=== PATIENT | female | born 1955 | race Caucasian/White ===

== ENCOUNTER 2022-09-17 11:16 | Inpatient (IN) | payer BC, MEDICARE ==
[~2022-09-17] VITALS: Ht 162.6 cm; Wt 77.1 kg
[~2022-09-17 11:16] MED LIST: AMLODIPINE BESY10 MG PO; EFFEXOR XR 3737.5 MG PO; HYDROCHLOROTHIA25 MG; HYDROXYCHLOROQ200 MG PO; LEVEMIR100 UNIT/1 SQ; LOPRESSOR25 MG PO; LOSARTAN POTAS100 MG PO; NOVOLOG100 UNIT/1 SQ; TIZANIDINE HCL4 MG PO
[2022-09-17] MEDS ORDERED: SODIUM CHLORIDE 0.9% 1000ML 1,000 ML IV SCH (11:45)
[2022-09-17 12:12] LABS: BASOPHILS # (AUTO) 0.1 (0.0-0.1); BASOPHILS % 0.4 % (0.0-1.0); HEMATOCRIT 33.7 % (34.2-44.1); HEMOGLOBIN 10.6 g/dL (12.0-16.0); LYMPHOCYTES # (AUTO) 1.3 (1.0-3.2); LYMPHOCYTES % 5.9 % (18.0-39.1); MEAN CORPUSCULAR HEMOGLOBIN 25.6 pg (28-32); MEAN CORPUSCULAR HGB CONC 31.5 g/dL (31-35); MEAN CORPUSCULAR VOLUME 81.4 fL (81-99); MONOCYTES # (AUTO) 0.9 (0.2-0.8); MONOCYTES % 3.9 % (4.4-11.3); NEUTROPHILS # (AUTO) 20.2 (2.1-6.9); NEUTROPHILS % 89.2 % (38.7-80.0); PLATELET COUNT 336 x10e3/uL (140-360); RED BLOOD COUNT 4.14 x10e6/uL (3.6-5.1); RED CELL DISTRIBUTION WIDTH 14.1 % (11.7-14.4)
[2022-09-17 12:44] LABS: MAGNESIUM 1.9 MG/DL (1.3-2.1)
[2022-09-17 12:47] LABS: ALBUMIN 3.2 g/dL (3.5-5.0); ALBUMIN/GLOBULIN RATIO 0.7 (0.8-2.0); ANION GAP 15.7 mmol/L (8-16); CALCIUM 9.1 mg/dL (8.4-10.2); CREATININE, SERUM 2.31 mg/dL (0.57-1.11); POTASSIUM 3.7 mmol/L (3.5-5.1)
[2022-09-17 13:03] LABS: LYMPHOCYTES % (MANUAL) 9 % (19-48); MONOCYTES % (MANUAL) 2 % (3.4-9.0); NEUTROPHILS % (MANUAL) 89 % (40-74); PLATELET ESTIMATE ADEQUATE; PLATELET MORPHOLOGY COMMENT NORMAL; RBC MORPHOLOGY COMMENT NORMAL
[2022-09-17] MEDS: ONDANSETRON HCL INJ 2MG/ML 2ML 2 MG/ML VIAL IV PRN (14:57)
[2022-09-17 17:14] LABS: CLARITY,URINE CLOUDY (CLEAR); COLOR,URINE YELLOW (YELLOW); KETONES,URINE NEGATIVE (NEGATIVE); LEUKOCYTE ESTERASE ,URINE SMALL (NEGATIVE); NITRITE,URINE POSITIVE (NEGATIVE); PROTEIN,URINE DIPSTICK 2+ (NEGATIVE)
[2022-09-17 17:15] LABS: URINE UROBILINOGEN 0.2 mg/dL (0.2 - 1)
[2022-09-17 17:30] LABS: BACTERIA,URINE MANY /HPF
[2022-09-17 17:31] LABS: EPITHELIAL CELLS,URINE FEW /LPF
[2022-09-17 17:49] VITALS: BP 134/72; PULSE 75; RESP 18; TEMP 98.9; O2SAT 99
[2022-09-17 17:51] VITALS: BP 134/72; PULSE 75; RESP 18; TEMP 98.9; O2SAT 99
[2022-09-17 18:08] VITALS: BP 134/72; RESP 18; TEMP 98.9; O2SAT 99
[2022-09-17] MEDS ORDERED: METOPROLOL SUCC50 MG PO (18:21)
[2022-09-17] MEDS ORDERED: VENLAFAXINE HCL75 MG PO (18:21)
[2022-09-17] MEDS ORDERED: OLMSRTN-AMLDPN1 EAC4 PO (18:21)
[2022-09-17] MEDS ORDERED: ONDANSETRON HCL8 MG PO (18:21)
[2022-09-17] MEDS ORDERED: METFORMIN HCL500 MG PO (18:21)
[2022-09-17] MEDS ORDERED: ATORVASTATIN CA40 MG PO (18:21)
[2022-09-17] MEDS ORDERED: OMEPRAZOLE40 MG PO (18:21)
[2022-09-17] MEDS ORDERED: MYRBETRIQ25 MG PO (18:21)
[2022-09-17] MEDS: SODIUM CHLORIDE 0.9% 1000ML 1,000 ML IV SCH ×2 (18:48→22:59)
[2022-09-17 21:00] VITALS: BP 154/77; PULSE 85; RESP 18; TEMP 100; O2SAT 100
[2022-09-17 21:39] VITALS: BP 154/77; PULSE 85; RESP 18; TEMP 100; O2SAT 100
[2022-09-17] MEDS ORDERED: ONDANSETRON HCL 4 MG ORAL DISINTEGRATING TAB PO PRN (22:00)
[2022-09-17] MEDS: NON-FORMULARY MEDICATION (Mirabegron (Myrbetriq) 25 MG) PO SCH (22:00)
[2022-09-17] MEDS: ATORVASTATIN 40 MG TAB PO SCH (22:57)
[2022-09-17] MEDS: VENLAFAXINE HCL 75 MG TAB PO SCH (22:57)
[2022-09-17] MEDS: ACETAMINOPHEN 325 MG TAB PO PRN (22:58)
[2022-09-17] MEDS: METOPROLOL SUCCINATE 50 MG TAB XL PO SCH (22:58)
[2022-09-17] MEDS: TIZANIDINE HCL 4 MG TAB PO SCH (22:59)
[2022-09-18] VITALS (9 sets, daily range): BP systolic 113–165; BP diastolic 60–86; PULSE 70–99; RESP 16–20; TEMP 98.1–100; O2SAT 98–100
[2022-09-18 05:51] LABS: BASOPHILS # (AUTO) 0.1 (0.0-0.1); BASOPHILS % 0.4 % (0.0-1.0); EOSINOPHILS # (AUTO) 0.2 (0.0-0.4); EOSINOPHILS % 1.2 % (0.0-6.0); HEMATOCRIT 27.6 % (34.2-44.1); HEMOGLOBIN 8.4 g/dL (12.0-16.0); LYMPHOCYTES # (AUTO) 2.6 (1.0-3.2); LYMPHOCYTES % 21.4 % (18.0-39.1); MEAN CORPUSCULAR HEMOGLOBIN 25.5 pg (28-32); MEAN CORPUSCULAR HGB CONC 30.4 g/dL (31-35); MEAN CORPUSCULAR VOLUME 83.6 fL (81-99); MONOCYTES # (AUTO) 0.8 (0.2-0.8); MONOCYTES % 6.8 % (4.4-11.3); NEUTROPHILS # (AUTO) 8.6 (2.1-6.9); NEUTROPHILS % 69.7 % (38.7-80.0); PLATELET COUNT 245 x10e3/uL (140-360); RED CELL DISTRIBUTION WIDTH 14.3 % (11.7-14.4)
[2022-09-18 06:29] LABS: ANION GAP 10.2 mmol/L (8-16); CALCIUM 8.2 mg/dL (8.4-10.2); CREATININE, SERUM 1.52 mg/dL (0.57-1.11); POTASSIUM 3.2 mmol/L (3.5-5.1)
[2022-09-18] MEDS: SODIUM CHLORIDE 0.9% 1000ML 1,000 ML IV SCH ×2 (08:09→13:18)
[2022-09-18] MEDS ORDERED: HYDROCHLOROTHIAZIDE 25 MG TAB PO SCH (09:00)
[2022-09-18] MEDS: AMLODIPINE PO SCH (09:00)
[2022-09-18] MEDS: HYDROCHLOROTHIAZIDE PO SCH (09:00)
[2022-09-18] MEDS: OLMESARTAN PO SCH (09:00)
[2022-09-18] MEDS: METFORMIN HCL 500 MG TAB PO SCH (09:28)
[2022-09-18] MEDS: VENLAFAXINE HCL 75 MG TAB PO SCH ×2 (09:28→21:25)
[2022-09-18] MEDS: PANTOPRAZOLE SOD 40 MG TABEC PO SCH (09:28)
[2022-09-18] MEDS ORDERED: ACETAMINOPHEN 325 MG TAB PO PRN (17:00)
[2022-09-18] MEDS ORDERED: ONDANSETRON HCL INJ 2MG/ML 2ML 2 MG/ML VIAL IV PRN (17:00)
[2022-09-18] MEDS ORDERED: POTASSIUM CHLORIDE 20 MEQ TAB CR PO PRN (17:00)
[2022-09-18] MEDS: ONDANSETRON HCL INJ 2MG/ML 2ML 2 MG/ML VIAL IV PRN (17:13)
[2022-09-18] MEDS: NON-FORMULARY MEDICATION (Mirabegron (Myrbetriq) 25 MG) PO SCH (21:00)
[2022-09-18] MEDS: METOPROLOL SUCCINATE 50 MG TAB XL PO SCH (21:26)
[2022-09-18] MEDS: ATORVASTATIN 40 MG TAB PO SCH (21:27)
[2022-09-18] MEDS: ACETAMINOPHEN 325 MG TAB PO PRN (21:28)
[2022-09-18] MEDS: ZOLPIDEM TARTRATE 5 MG TAB PO PRN (21:29)
[2022-09-18] MEDS: TIZANIDINE HCL 4 MG TAB PO SCH (21:31)
[2022-09-19] VITALS (8 sets, daily range): BP systolic 94–178; BP diastolic 57–99; PULSE 57–90; RESP 19–20; TEMP 98–99.3; O2SAT 96–100
[2022-09-19] MEDS: SODIUM CHLORIDE 0.9% 1000ML 1,000 ML IV SCH ×3 (00:40→14:15)
[2022-09-19 06:07] LABS: BASOPHILS # (AUTO) 0.1 (0.0-0.1); BASOPHILS % 0.5 % (0.0-1.0); EOSINOPHILS # (AUTO) 0.2 (0.0-0.4); EOSINOPHILS % 2.2 % (0.0-6.0); HEMATOCRIT 25.2 % (34.2-44.1); HEMOGLOBIN 7.7 g/dL (12.0-16.0); LYMPHOCYTES # (AUTO) 2.4 (1.0-3.2); LYMPHOCYTES % 25.8 % (18.0-39.1); MEAN CORPUSCULAR HEMOGLOBIN 25.3 pg (28-32); MEAN CORPUSCULAR HGB CONC 30.6 g/dL (31-35); MEAN CORPUSCULAR VOLUME 82.9 fL (81-99); MONOCYTES # (AUTO) 0.8 (0.2-0.8); MONOCYTES % 8.6 % (4.4-11.3); NEUTROPHILS # (AUTO) 5.8 (2.1-6.9); NEUTROPHILS % 62.5 % (38.7-80.0); PLATELET COUNT 248 x10e3/uL (140-360); RED BLOOD COUNT 3.04 x10e6/uL (3.6-5.1); RED CELL DISTRIBUTION WIDTH 14.4 % (11.7-14.4)
[2022-09-19 06:36] LABS: ALBUMIN 2.3 g/dL (3.5-5.0); ALBUMIN/GLOBULIN RATIO 0.7 (0.8-2.0); ANION GAP 9.7 mmol/L (8-16); CREATININE, SERUM 1.34 mg/dL (0.57-1.11); POTASSIUM 3.7 mmol/L (3.5-5.1)
[2022-09-19] MEDS: OLMESARTAN PO SCH (09:00)
[2022-09-19] MEDS: AMLODIPINE PO SCH (09:00)
[2022-09-19] MEDS: HYDROCHLOROTHIAZIDE PO SCH (09:00)
[2022-09-19] MEDS: VENLAFAXINE HCL 75 MG TAB PO SCH ×2 (09:02→20:28)
[2022-09-19] MEDS: PANTOPRAZOLE SOD 40 MG TABEC PO SCH (09:03)
[2022-09-19] MEDS: METFORMIN HCL 500 MG TAB PO SCH (09:03)
[2022-09-19] MEDS ORDERED: NYSTATIN 15 GM POWDER UD BTL TOP PRN (13:30)
[2022-09-19 14:47] LABS: FERRITIN 22.2 ng/mL (4.63-204.00)
[2022-09-19] MEDS: TIZANIDINE HCL 4 MG TAB PO SCH (20:28)
[2022-09-19] MEDS: ZOLPIDEM TARTRATE 5 MG TAB PO PRN (20:28)
[2022-09-19] MEDS: ATORVASTATIN 40 MG TAB PO SCH (20:29)
[2022-09-19] MEDS: METOPROLOL SUCCINATE 50 MG TAB XL PO SCH (20:31)
[2022-09-19] MEDS: NON-FORMULARY MEDICATION (Mirabegron (Myrbetriq) 25 MG) PO SCH (21:00)
[2022-09-20] VITALS (7 sets, daily range): BP systolic 125–183; BP diastolic 73–98; PULSE 69–93; RESP 18–20; TEMP 97.8–99.4; O2SAT 98–100
[2022-09-20] MEDS: ONDANSETRON HCL INJ 2MG/ML 2ML 2 MG/ML VIAL IV PRN ×4 (00:10→21:18)
[2022-09-20 05:19] LABS: BASOPHILS # (AUTO) 0.1 (0.0-0.1); BASOPHILS % 0.7 % (0.0-1.0); EOSINOPHILS # (AUTO) 0.3 (0.0-0.4); EOSINOPHILS % 3.2 % (0.0-6.0); HEMATOCRIT 28.4 % (34.2-44.1); HEMOGLOBIN 8.7 g/dL (12.0-16.0); LYMPHOCYTES # (AUTO) 2.5 (1.0-3.2); LYMPHOCYTES % 23.8 % (18.0-39.1); MEAN CORPUSCULAR HEMOGLOBIN 25.4 pg (28-32); MEAN CORPUSCULAR HGB CONC 30.6 g/dL (31-35); MONOCYTES # (AUTO) 0.8 (0.2-0.8); MONOCYTES % 7.6 % (4.4-11.3); NEUTROPHILS # (AUTO) 6.9 (2.1-6.9); NEUTROPHILS % 64.3 % (38.7-80.0); PLATELET COUNT 262 x10e3/uL (140-360); RED BLOOD COUNT 3.42 x10e6/uL (3.6-5.1); RED CELL DISTRIBUTION WIDTH 14.4 % (11.7-14.4)
[2022-09-20 05:52] LABS: ALBUMIN 2.5 g/dL (3.5-5.0); ALBUMIN/GLOBULIN RATIO 0.7 (0.8-2.0); ANION GAP 11.6 mmol/L (8-16); CALCIUM 8.2 mg/dL (8.4-10.2); CREATININE, SERUM 1.33 mg/dL (0.57-1.11); POTASSIUM 3.6 mmol/L (3.5-5.1)
[2022-09-20] MEDS: METFORMIN HCL 500 MG TAB PO SCH (08:25)
[2022-09-20] MEDS: PANTOPRAZOLE SOD 40 MG TABEC PO SCH (08:25)
[2022-09-20] MEDS: VENLAFAXINE HCL 75 MG TAB PO SCH ×2 (08:25→21:26)
[2022-09-20] MEDS: SODIUM CHLORIDE 0.9% 1000ML 1,000 ML IV SCH (08:26)
[2022-09-20] MEDS: OLMESARTAN 20 MG TAB PO SCH (09:17)
[2022-09-20] MEDS: AMLODIPINE BESYLATE 10 MG TAB PO SCH (09:17)
[2022-09-20] MEDS: HYDROCHLOROTHIAZIDE 25 MG TAB PO SCH (09:17)
[2022-09-20] MEDS: IRON SUCROSE 100 MG in SODIUM CHLORIDE 0.9% 100 ML IV SCH (09:20)
[2022-09-20] MEDS ORDERED: IOPAMIDOL 370 MG/ML 100 ML INFUS..BTL INJ ONE (13:32)
[2022-09-20] MEDS ORDERED: ALBUTEROL/IPRATROPIUM 3 ML NEB NEB ONE (15:15)
[2022-09-20] MEDS ORDERED: ALBUTEROL/IPRATROPIUM 3 ML NEB NEB PRN (15:15)
[2022-09-20] MEDS: NON-FORMULARY MEDICATION (Mirabegron (Myrbetriq) 25 MG) PO SCH (21:00)
[2022-09-20] MEDS: ATORVASTATIN 40 MG TAB PO SCH (21:16)
[2022-09-20] MEDS: ZOLPIDEM TARTRATE 5 MG TAB PO PRN (21:17)
[2022-09-20] MEDS: METOPROLOL SUCCINATE 50 MG TAB XL PO SCH (21:17)
[2022-09-20] MEDS: ACETAMINOPHEN 325 MG TAB PO PRN (21:18)
[2022-09-20] MEDS: TIZANIDINE HCL 4 MG TAB PO SCH (21:27)
[2022-09-21] VITALS (7 sets, daily range): BP systolic 98–149; BP diastolic 65–96; PULSE 57–91; RESP 17–20; TEMP 97.3–98.9; O2SAT 96–100
[2022-09-21] MEDS: ONDANSETRON HCL INJ 2MG/ML 2ML 2 MG/ML VIAL IV PRN ×2 (05:35→19:42)
[2022-09-21 05:54] LABS: BASOPHILS # (AUTO) 0.1 (0.0-0.1); BASOPHILS % 0.7 % (0.0-1.0); EOSINOPHILS # (AUTO) 0.3 (0.0-0.4); EOSINOPHILS % 2.6 % (0.0-6.0); HEMATOCRIT 29.4 % (34.2-44.1); HEMOGLOBIN 9.2 g/dL (12.0-16.0); LYMPHOCYTES # (AUTO) 2.4 (1.0-3.2); LYMPHOCYTES % 24.7 % (18.0-39.1); MEAN CORPUSCULAR HEMOGLOBIN 25.3 pg (28-32); MEAN CORPUSCULAR HGB CONC 31.3 g/dL (31-35); MONOCYTES # (AUTO) 0.7 (0.2-0.8); MONOCYTES % 6.7 % (4.4-11.3); NEUTROPHILS # (AUTO) 6.4 (2.1-6.9); PLATELET COUNT 271 x10e3/uL (140-360); RED BLOOD COUNT 3.63 x10e6/uL (3.6-5.1); RED CELL DISTRIBUTION WIDTH 14.5 % (11.7-14.4)
[2022-09-21 06:19] LABS: ANION GAP 11.8 mmol/L (8-16); CALCIUM 8.3 mg/dL (8.4-10.2); CREATININE, SERUM 1.57 mg/dL (0.57-1.11); POTASSIUM 3.8 mmol/L (3.5-5.1)
[2022-09-21] MEDS ORDERED: FUROSEMIDE INJ 10 MG/ML 2 ML VIAL IV ONE (09:30)
[2022-09-21] MEDS: VENLAFAXINE HCL 75 MG TAB PO SCH ×2 (09:32→20:52)
[2022-09-21] MEDS: OLMESARTAN 20 MG TAB PO SCH (09:33)
[2022-09-21] MEDS: AMLODIPINE BESYLATE 10 MG TAB PO SCH (09:33)
[2022-09-21] MEDS: HYDROCHLOROTHIAZIDE 25 MG TAB PO SCH (09:34)
[2022-09-21] MEDS: METFORMIN HCL 500 MG TAB PO SCH (09:34)
[2022-09-21] MEDS: PANTOPRAZOLE SOD 40 MG TABEC PO SCH (09:34)
[2022-09-21] MEDS: IRON SUCROSE 100 MG in SODIUM CHLORIDE 0.9% 100 ML IV SCH (09:40)
[2022-09-21] MEDS ORDERED: MECLIZINE HCL 12.5 MG TAB PO ONE (11:15)
[2022-09-21] MEDS: NON-FORMULARY MEDICATION (Mirabegron (Myrbetriq) 25 MG) PO SCH (20:51)
[2022-09-21] MEDS: TIZANIDINE HCL 4 MG TAB PO SCH (20:52)
[2022-09-21] MEDS: ATORVASTATIN 40 MG TAB PO SCH (20:53)
[2022-09-21] MEDS: METOPROLOL SUCCINATE 50 MG TAB XL PO SCH (20:56)
[2022-09-21] MEDS: ZOLPIDEM TARTRATE 5 MG TAB PO PRN (21:50)
[2022-09-22] VITALS (8 sets, daily range): BP systolic 99–139; BP diastolic 52–98; PULSE 61–88; RESP 18–21; TEMP 97.3–98.5; O2SAT 94–100
[2022-09-22 05:57] LABS: BASOPHILS # (AUTO) 0.1 (0.0-0.1); BASOPHILS % 0.5 % (0.0-1.0); EOSINOPHILS # (AUTO) 0.3 (0.0-0.4); EOSINOPHILS % 2.8 % (0.0-6.0); HEMATOCRIT 26.4 % (34.2-44.1); HEMOGLOBIN 8.5 g/dL (12.0-16.0); LYMPHOCYTES # (AUTO) 2.4 (1.0-3.2); LYMPHOCYTES % 22.5 % (18.0-39.1); MEAN CORPUSCULAR HEMOGLOBIN 25.4 pg (28-32); MEAN CORPUSCULAR HGB CONC 32.2 g/dL (31-35); MONOCYTES # (AUTO) 0.7 (0.2-0.8); MONOCYTES % 6.3 % (4.4-11.3); NEUTROPHILS # (AUTO) 7.1 (2.1-6.9); NEUTROPHILS % 67.4 % (38.7-80.0); PLATELET COUNT 273 x10e3/uL (140-360); RED BLOOD COUNT 3.34 x10e6/uL (3.6-5.1); RED CELL DISTRIBUTION WIDTH 14.5 % (11.7-14.4)
[2022-09-22] MEDS: ONDANSETRON HCL INJ 2MG/ML 2ML 2 MG/ML VIAL IV PRN ×2 (06:05→18:37)
[2022-09-22 06:15] LABS: ANION GAP 14.5 mmol/L (8-16); CALCIUM 8.3 mg/dL (8.4-10.2); CREATININE, SERUM 2.05 mg/dL (0.57-1.11); POTASSIUM 3.5 mmol/L (3.5-5.1)
[2022-09-22] MEDS ORDERED: SODIUM CHLORIDE 0.9% 100 ML ONE (08:36)
[2022-09-22] MEDS: IRON SUCROSE 100 MG in SODIUM CHLORIDE 0.9% 100 ML IV SCH (09:10)
[2022-09-22] MEDS: VENLAFAXINE HCL 75 MG TAB PO SCH ×2 (09:11→20:06)
[2022-09-22] MEDS: OLMESARTAN 20 MG TAB PO SCH (09:11)
[2022-09-22] MEDS: MECLIZINE HCL 12.5 MG TAB PO SCH (09:11)
[2022-09-22] MEDS: AMLODIPINE BESYLATE 10 MG TAB PO SCH (09:12)
[2022-09-22] MEDS: METFORMIN HCL 500 MG TAB PO SCH (09:12)
[2022-09-22] MEDS: PANTOPRAZOLE SOD 40 MG TABEC PO SCH (09:12)
[2022-09-22] MEDS ORDERED: FUROSEMIDE INJ 10 MG/ML 2 ML VIAL IV ONE (10:30)
[2022-09-22] MEDS: ACETAMINOPHEN 325 MG TAB PO PRN (11:57)
[2022-09-22] MEDS ORDERED: DEXAMETHASONE SOD PHOS 10 MG/1 ML VIAL IV ONE (13:15)
[2022-09-22] MEDS ORDERED: DEXTROSE 50% SYRINGE 50 ML IV PRN (14:00)
[2022-09-22] MEDS: INSULIN LISPRO 100 UNIT/1 ML 3ML VIAL SQ SCH ×2 (16:30→21:06)
[2022-09-22] MEDS: METOPROLOL SUCCINATE 50 MG TAB XL PO SCH (20:07)
[2022-09-22] MEDS: TIZANIDINE HCL 4 MG TAB PO SCH (20:08)
[2022-09-22] MEDS: ATORVASTATIN 40 MG TAB PO SCH (20:09)
[2022-09-22] MEDS: Morphine 2mg Syringe 2 MG/ML SYR IV PRN (20:11)
[2022-09-22] MEDS ORDERED: CYANOCOBALAMIN INJ 1,000 MCG/ML VIAL IM ONE (20:15)
[2022-09-22] MEDS: NON-FORMULARY MEDICATION (Mirabegron (Myrbetriq) 25 MG) PO SCH (20:48)
[2022-09-23] VITALS (7 sets, daily range): BP systolic 110–143; BP diastolic 40–80; PULSE 66–95; RESP 16–21; TEMP 97.1–98.8; O2SAT 98–100
[2022-09-23] MEDS: ZOLPIDEM TARTRATE 5 MG TAB PO PRN ×2 (00:20→21:06)
[2022-09-23] MEDS: ACETAMINOPHEN 325 MG TAB PO PRN (00:29)
[2022-09-23] MEDS: ONDANSETRON HCL INJ 2MG/ML 2ML 2 MG/ML VIAL IV PRN ×2 (02:43→07:51)
[2022-09-23] MEDS: Morphine 2mg Syringe 2 MG/ML SYR IV PRN ×4 (03:15→23:00)
[2022-09-23 06:37] LABS: BASOPHILS % 0.2 % (0.0-1.0); HEMATOCRIT 25.2 % (34.2-44.1); LYMPHOCYTES # (AUTO) 1.3 (1.0-3.2); LYMPHOCYTES % 7.8 % (18.0-39.1); MEAN CORPUSCULAR HEMOGLOBIN 25.6 pg (28-32); MEAN CORPUSCULAR HGB CONC 31.7 g/dL (31-35); MEAN CORPUSCULAR VOLUME 80.5 fL (81-99); MONOCYTES # (AUTO) 0.3 (0.2-0.8); MONOCYTES % 1.6 % (4.4-11.3); NEUTROPHILS # (AUTO) 14.3 (2.1-6.9); NEUTROPHILS % 89.8 % (38.7-80.0); PLATELET COUNT 271 x10e3/uL (140-360); RED BLOOD COUNT 3.13 x10e6/uL (3.6-5.1); RED CELL DISTRIBUTION WIDTH 14.2 % (11.7-14.4)
[2022-09-23 07:00] LABS: ALBUMIN 2.8 g/dL (3.5-5.0); ALBUMIN/GLOBULIN RATIO 0.7 (0.8-2.0); ANION GAP 14.4 mmol/L (8-16); CALCIUM 8.3 mg/dL (8.4-10.2); CREATININE, SERUM 2.35 mg/dL (0.57-1.11); POTASSIUM 3.4 mmol/L (3.5-5.1)
[2022-09-23] MEDS: CYANOCOBALAMIN INJ 1,000 MCG/ML VIAL IM SCH (08:11)
[2022-09-23] MEDS: INSULIN LISPRO 100 UNIT/1 ML 3ML VIAL SQ SCH ×4 (08:12→21:11)
[2022-09-23] MEDS ORDERED: REGADENOSON 0.4 MG/5 ML SYR IV ONE (08:51)
[2022-09-23] MEDS: MECLIZINE HCL 12.5 MG TAB PO SCH (10:34)
[2022-09-23] MEDS: OLMESARTAN 20 MG TAB PO SCH (10:34)
[2022-09-23] MEDS: VENLAFAXINE HCL 75 MG TAB PO SCH ×2 (10:34→21:05)
[2022-09-23] MEDS: IRON-VITAMIN-MINERAL CAPSULE PO SCH ×2 (10:34→16:48)
[2022-09-23] MEDS: PANTOPRAZOLE SOD 40 MG TABEC PO SCH (10:34)
[2022-09-23] MEDS: AMLODIPINE BESYLATE 10 MG TAB PO SCH (10:35)
[2022-09-23] MEDS ORDERED: POTASSIUM CHLORIDE 20 MEQ TAB CR PO ONE (13:30)
[2022-09-23] MEDS: LACTATED RINGER'S 1,000 ML INJ SCH (19:16)
[2022-09-23] MEDS: NON-FORMULARY MEDICATION (Mirabegron (Myrbetriq) 25 MG) PO SCH (21:00)
[2022-09-23] MEDS: ATORVASTATIN 40 MG TAB PO SCH (21:05)
[2022-09-23] MEDS: TIZANIDINE HCL 4 MG TAB PO SCH (21:06)
[2022-09-23] MEDS: METOPROLOL SUCCINATE 50 MG TAB XL PO SCH (21:06)
[2022-09-24] VITALS (11 sets, daily range): BP systolic 107–137; BP diastolic 56–92; PULSE 71–98; RESP 17–22; TEMP 97.5–98.7; O2SAT 90–100
[2022-09-24] MEDS: ONDANSETRON HCL INJ 2MG/ML 2ML 2 MG/ML VIAL IV PRN ×3 (06:41→23:52)
[2022-09-24] MEDS: LACTATED RINGER'S 1,000 ML INJ SCH (06:41)
[2022-09-24 06:48] LABS: BASOPHILS # (AUTO) 0.1 (0.0-0.1); BASOPHILS % 0.4 % (0.0-1.0); EOSINOPHILS # (AUTO) 0.1 (0.0-0.4); HEMATOCRIT 22.9 % (34.2-44.1); LYMPHOCYTES # (AUTO) 3.1 (1.0-3.2); MEAN CORPUSCULAR HEMOGLOBIN 25.8 pg (28-32); MEAN CORPUSCULAR HGB CONC 31.4 g/dL (31-35); MEAN CORPUSCULAR VOLUME 82.1 fL (81-99); MONOCYTES # (AUTO) 0.8 (0.2-0.8); MONOCYTES % 5.4 % (4.4-11.3); NEUTROPHILS # (AUTO) 9.9 (2.1-6.9); NEUTROPHILS % 70.5 % (38.7-80.0); PLATELET COUNT 275 x10e3/uL (140-360); RED BLOOD COUNT 2.79 x10e6/uL (3.6-5.1); RED CELL DISTRIBUTION WIDTH 14.6 % (11.7-14.4)
[2022-09-24 06:55] LABS: HEMOGLOBIN 7.2 g/dL (12.0-16.0)
[2022-09-24] MEDS: INSULIN LISPRO 100 UNIT/1 ML 3ML VIAL SQ SCH ×4 (07:30→21:58)
[2022-09-24 07:40] LABS: ANION GAP 10.4 mmol/L (8-16); CREATININE, SERUM 2.08 mg/dL (0.57-1.11); POTASSIUM 3.4 mmol/L (3.5-5.1)
[2022-09-24] MEDS: CYANOCOBALAMIN INJ 1,000 MCG/ML VIAL IM SCH (08:58)
[2022-09-24] MEDS: Morphine 2mg Syringe 2 MG/ML SYR IV PRN ×3 (08:58→23:56)
[2022-09-24] MEDS: VENLAFAXINE HCL 75 MG TAB PO SCH ×2 (09:00→20:48)
[2022-09-24] MEDS: IRON-VITAMIN-MINERAL CAPSULE PO SCH ×2 (09:00→17:33)
[2022-09-24] MEDS: DIPHENHYDRAMINE HCL INJ 50 MG/ML VIAL IV PRN ×2 (10:15→20:49)
[2022-09-24] MEDS ORDERED: FENTANYL CITRATE/PF 100MCG/2 ML INJ ONE (11:53)
[2022-09-24] MEDS ORDERED: POTASSIUM CHLORIDE 20MEQ/100ML 100 ML IV ONE ×2 (12:15→17:00)
[2022-09-24] MEDS ORDERED: LIDOCAINE HCL 2% LOCAL INJ 5 ML SDV VIAL INJ ONE (13:48)
[2022-09-24] MEDS ORDERED: PROPOFOL IV EMULSION 10 MG/ML 20 ML VIAL ONE (13:48)
[2022-09-24] MEDS ORDERED: POVIDONE IODINE 0.05% 0.05 % ML PO ONE (13:48)
[2022-09-24] MEDS: MECLIZINE HCL 12.5 MG TAB PO SCH (17:33)
[2022-09-24] MEDS: PANTOPRAZOLE SOD 40 MG TABEC PO SCH (17:34)
[2022-09-24] MEDS: AMLODIPINE BESYLATE 10 MG TAB PO SCH (17:34)
[2022-09-24] MEDS: TIZANIDINE HCL 4 MG TAB PO SCH (20:48)
[2022-09-24] MEDS: ATORVASTATIN 40 MG TAB PO SCH (20:48)
[2022-09-24] MEDS: METOPROLOL SUCCINATE 50 MG TAB XL PO SCH (20:48)
[2022-09-24] MEDS: NON-FORMULARY MEDICATION (Mirabegron (Myrbetriq) 25 MG) PO SCH (21:00)
[2022-09-24] MEDS: ZOLPIDEM TARTRATE 5 MG TAB PO PRN (23:52)
[2022-09-25] VITALS (9 sets, daily range): BP systolic 103–135; BP diastolic 43–71; PULSE 62–87; RESP 18–22; TEMP 97.8–98.5; O2SAT 90–100
[2022-09-25] MEDS: ONDANSETRON HCL INJ 2MG/ML 2ML 2 MG/ML VIAL IV PRN ×2 (06:18→12:09)
[2022-09-25 07:22] LABS: BASOPHILS # (AUTO) 0.1 (0.0-0.1); BASOPHILS % 0.5 % (0.0-1.0); EOSINOPHILS # (AUTO) 0.4 (0.0-0.4); EOSINOPHILS % 2.7 % (0.0-6.0); HEMATOCRIT 25.8 % (34.2-44.1); LYMPHOCYTES # (AUTO) 3.3 (1.0-3.2); LYMPHOCYTES % 25.2 % (18.0-39.1); MEAN CORPUSCULAR HEMOGLOBIN 25.7 pg (28-32); MONOCYTES % 7.2 % (4.4-11.3); NEUTROPHILS # (AUTO) 8.4 (2.1-6.9); NEUTROPHILS % 63.6 % (38.7-80.0); PLATELET COUNT 317 x10e3/uL (140-360); RED BLOOD COUNT 3.11 x10e6/uL (3.6-5.1); RED CELL DISTRIBUTION WIDTH 15.8 % (11.7-14.4)
[2022-09-25] MEDS: INSULIN LISPRO 100 UNIT/1 ML 3ML VIAL SQ SCH ×4 (09:50→21:08)
[2022-09-25] MEDS: CYANOCOBALAMIN INJ 1,000 MCG/ML VIAL IM SCH (09:51)
[2022-09-25] MEDS: OLMESARTAN 20 MG TAB PO SCH (09:51)
[2022-09-25] MEDS: MECLIZINE HCL 12.5 MG TAB PO SCH (09:52)
[2022-09-25] MEDS: IRON-VITAMIN-MINERAL CAPSULE PO SCH ×2 (09:52→16:42)
[2022-09-25] MEDS: PANTOPRAZOLE SOD 40 MG TABEC PO SCH (09:52)
[2022-09-25] MEDS: AMLODIPINE BESYLATE 10 MG TAB PO SCH (09:52)
[2022-09-25] MEDS: VENLAFAXINE HCL 75 MG TAB PO SCH ×2 (09:52→20:48)
[2022-09-25] MEDS: DOCUSATE SODIUM 100 MG CAP PO PRN ×2 (09:54→17:16)
[2022-09-25 13:48] LABS: ANION GAP 12.8 mmol/L (8-16); CALCIUM 8.1 mg/dL (8.4-10.2); POTASSIUM 3.8 mmol/L (3.5-5.1)
[2022-09-25 15:21] LABS: CREATININE, SERUM 1.9 mg/dL (0.57-1.11)
[2022-09-25] MEDS ORDERED: LIDOCAINE 4% PATCH TP PRN (15:45)
[2022-09-25] MEDS: TIZANIDINE HCL 4 MG TAB PO SCH (20:49)
[2022-09-25] MEDS: ATORVASTATIN 40 MG TAB PO SCH (20:49)
[2022-09-25] MEDS: METOPROLOL SUCCINATE 50 MG TAB XL PO SCH (20:49)
[2022-09-25] MEDS: NON-FORMULARY MEDICATION (Mirabegron (Myrbetriq) 25 MG) PO SCH (21:00)
[2022-09-25] MEDS: ZOLPIDEM TARTRATE 5 MG TAB PO PRN (22:42)
[2022-09-26] VITALS (12 sets, daily range): BP systolic 98–141; BP diastolic 46–93; PULSE 61–120; RESP 17–22; TEMP 97.5–98.8; O2SAT 92–98
[2022-09-26 06:38] LABS: ANION GAP 11.8 mmol/L (8-16); CALCIUM 7.8 mg/dL (8.4-10.2); CREATININE, SERUM 1.84 mg/dL (0.57-1.11); POTASSIUM 3.8 mmol/L (3.5-5.1)
[2022-09-26] MEDS: INSULIN LISPRO 100 UNIT/1 ML 3ML VIAL SQ SCH ×4 (07:30→21:10)
[2022-09-26] MEDS: OLMESARTAN 20 MG TAB PO SCH (08:55)
[2022-09-26] MEDS: IRON-VITAMIN-MINERAL CAPSULE PO SCH ×2 (08:55→15:36)
[2022-09-26] MEDS: VENLAFAXINE HCL 75 MG TAB PO SCH ×2 (08:55→21:02)
[2022-09-26] MEDS: ONDANSETRON HCL INJ 2MG/ML 2ML 2 MG/ML VIAL IV PRN (08:55)
[2022-09-26] MEDS: AMLODIPINE BESYLATE 10 MG TAB PO SCH (08:56)
[2022-09-26] MEDS: CYANOCOBALAMIN INJ 1,000 MCG/ML VIAL IM SCH (08:56)
[2022-09-26] MEDS: PANTOPRAZOLE SOD 40 MG TABEC PO SCH (08:56)
[2022-09-26] MEDS: MECLIZINE HCL 12.5 MG TAB PO SCH (08:56)
[2022-09-26] MEDS ORDERED: Morphine 2mg Syringe 2 MG/ML SYR IV ONE (09:45)
[2022-09-26] MEDS ORDERED: ACETAMINOPHEN/CODEINE 300MG - 30MG TAB PO PRN (13:30)
[2022-09-26] MEDS: ACETAMINOPHEN 325 MG TAB PO PRN ×2 (15:36→21:04)
[2022-09-26] MEDS ORDERED: LACTULOSE SYRUP 20 GM/30 ML UDC PO PRN (17:30)
[2022-09-26] MEDS: NON-FORMULARY MEDICATION (Mirabegron (Myrbetriq) 25 MG) PO SCH (21:00)
[2022-09-26] MEDS: METOPROLOL SUCCINATE 50 MG TAB XL PO SCH (21:02)
[2022-09-26] MEDS: TIZANIDINE HCL 4 MG TAB PO SCH (21:03)
[2022-09-26] MEDS: ZOLPIDEM TARTRATE 5 MG TAB PO PRN (21:03)
[2022-09-26] MEDS: ATORVASTATIN 40 MG TAB PO SCH (21:03)
[2022-09-27] VITALS (10 sets, daily range): BP systolic 100–155; BP diastolic 50–92; PULSE 62–79; RESP 18–20; TEMP 97.7–98.7; O2SAT 93–100
[2022-09-27] MEDS: INSULIN LISPRO 100 UNIT/1 ML 3ML VIAL SQ SCH ×4 (07:30→21:24)
[2022-09-27] MEDS: MECLIZINE HCL 12.5 MG TAB PO SCH (09:22)
[2022-09-27] MEDS: VENLAFAXINE HCL 75 MG TAB PO SCH ×2 (09:22→21:21)
[2022-09-27] MEDS: OLMESARTAN 20 MG TAB PO SCH (09:22)
[2022-09-27] MEDS: IRON-VITAMIN-MINERAL CAPSULE PO SCH ×2 (09:22→17:15)
[2022-09-27] MEDS: PANTOPRAZOLE SOD 40 MG TABEC PO SCH (09:22)
[2022-09-27] MEDS: AMLODIPINE BESYLATE 10 MG TAB PO SCH (09:23)
[2022-09-27] MEDS: CYANOCOBALAMIN INJ 1,000 MCG/ML VIAL IM SCH (09:23)
[2022-09-27] MEDS: ACETAMINOPHEN 325 MG TAB PO PRN ×2 (09:57→17:52)
[2022-09-27 17:01] LABS: BASOPHILS # (AUTO) 0.1 (0.0-0.1); BASOPHILS % 0.3 % (0.0-1.0); EOSINOPHILS # (AUTO) 0.4 (0.0-0.4); EOSINOPHILS % 2.3 % (0.0-6.0); HEMATOCRIT 28.4 % (34.2-44.1); LYMPHOCYTES # (AUTO) 2.6 (1.0-3.2); LYMPHOCYTES % 16.6 % (18.0-39.1); MEAN CORPUSCULAR HGB CONC 31.7 g/dL (31-35); MEAN CORPUSCULAR VOLUME 82.1 fL (81-99); MONOCYTES # (AUTO) 0.8 (0.2-0.8); MONOCYTES % 5.3 % (4.4-11.3); NEUTROPHILS # (AUTO) 11.8 (2.1-6.9); NEUTROPHILS % 74.9 % (38.7-80.0); PLATELET COUNT 359 x10e3/uL (140-360); RED BLOOD COUNT 3.46 x10e6/uL (3.6-5.1); RED CELL DISTRIBUTION WIDTH 16.1 % (11.7-14.4)
[2022-09-27 17:18] LABS: ANION GAP 14.9 mmol/L (8-16); CALCIUM 8.9 mg/dL (8.4-10.2); CREATININE, SERUM 1.58 mg/dL (0.57-1.11); POTASSIUM 3.9 mmol/L (3.5-5.1)
[2022-09-27] MEDS: NON-FORMULARY MEDICATION (Mirabegron (Myrbetriq) 25 MG) PO SCH (21:00)
[2022-09-27] MEDS: METOPROLOL SUCCINATE 50 MG TAB XL PO SCH (21:21)
[2022-09-27] MEDS: ATORVASTATIN 40 MG TAB PO SCH (21:21)
[2022-09-27] MEDS: TIZANIDINE HCL 4 MG TAB PO SCH (21:21)
[2022-09-27] MEDS: ZOLPIDEM TARTRATE 5 MG TAB PO PRN (21:25)
[2022-09-28] VITALS: BP 91/79; PULSE 58; RESP 20; TEMP 97.3; O2SAT 98
[2022-09-28 05:49] LABS: BASOPHILS # (AUTO) 0.1 (0.0-0.1); BASOPHILS % 0.5 % (0.0-1.0); EOSINOPHILS # (AUTO) 0.3 (0.0-0.4); EOSINOPHILS % 2.3 % (0.0-6.0); HEMATOCRIT 25.6 % (34.2-44.1); HEMOGLOBIN 7.8 g/dL (12.0-16.0); LYMPHOCYTES # (AUTO) 2.5 (1.0-3.2); MEAN CORPUSCULAR HGB CONC 30.5 g/dL (31-35); MEAN CORPUSCULAR VOLUME 85.3 fL (81-99); MONOCYTES # (AUTO) 0.7 (0.2-0.8); MONOCYTES % 5.6 % (4.4-11.3); NEUTROPHILS # (AUTO) 9.5 (2.1-6.9); NEUTROPHILS % 71.9 % (38.7-80.0); PLATELET COUNT 294 x10e3/uL (140-360); RED CELL DISTRIBUTION WIDTH 16.3 % (11.7-14.4)
[2022-09-28] MEDS: INSULIN LISPRO 100 UNIT/1 ML 3ML VIAL SQ SCH ×2 (07:30→12:26)
[2022-09-28 08:34] VITALS: BP 138/64; PULSE 77; RESP 20; TEMP 98.6; O2SAT 99
[2022-09-28] MEDS: MECLIZINE HCL 12.5 MG TAB PO SCH (08:57)
[2022-09-28] MEDS: OLMESARTAN 20 MG TAB PO SCH (08:57)
[2022-09-28] MEDS: IRON-VITAMIN-MINERAL CAPSULE PO SCH (08:57)
[2022-09-28] MEDS: VENLAFAXINE HCL 75 MG TAB PO SCH (08:57)
[2022-09-28] MEDS: PANTOPRAZOLE SOD 40 MG TABEC PO SCH (08:58)
[2022-09-28] MEDS: CYANOCOBALAMIN INJ 1,000 MCG/ML VIAL IM SCH (08:58)
[2022-09-28] MEDS: AMLODIPINE BESYLATE 10 MG TAB PO SCH (08:58)
[2022-09-28 09:10] VITALS: BP 138/64; PULSE 77; RESP 20; TEMP 98.6; O2SAT 99
[2022-09-28 12:17] VITALS: BP 143/83; PULSE 80; RESP 20; TEMP 99.1; O2SAT 98
== END 2022-09-28 13:37 | disposition home health service (06) | DRG 683 ==
LOC: ER 11:22 → ERHOLD 14:06 → MED/SURG2 17:28
PROVIDERS: ADMIT Internal Medicine; ATTEND Internal Medicine
PROC: 02HV33Z Insertion of Infusion Device into Superior Vena Cava, Percutaneous Approach (ICD-10-PCS; 2022-09-21)
PROC: 0DB68ZX Excision of Stomach, Via Natural or Artificial Opening Endoscopic, Diagnostic (ICD-10-PCS; principal; 2022-09-24 15:07)
DX: N17.9 Acute kidney failure, unspecified (principal); A09 Infectious gastroenteritis and colitis, unspecified; K20.90 Esophagitis, unspecified without bleeding; K44.9 Diaphragmatic hernia without obstruction or gangrene; R55 Syncope and collapse; E86.0 Dehydration; E11.22 Type 2 diabetes mellitus with diabetic chronic kidney disease; I25.10 Atherosclerotic heart disease of native coronary artery without angina pectoris; K59.00 Constipation, unspecified; E86.1 Hypovolemia; D63.1 Anemia in chronic kidney disease; D50.9 Iron deficiency anemia, unspecified; I13.10 Hypertensive heart and chronic kidney disease without heart failure, with stage 1 through stage 4 chronic kidney disease, or unspecified chronic kidney disease; N18.30 Chronic kidney disease, stage 3 unspecified; J45.909 Unspecified asthma, uncomplicated; E87.6 Hypokalemia; Z20.822 Contact with and (suspected) exposure to COVID-19; Z98.84 Bariatric surgery status; Z85.3 Personal history of malignant neoplasm of breast; Z88.2 Allergy status to sulfonamides; Z79.4 Long term (current) use of insulin; Z95.1 Presence of aortocoronary bypass graft; Z90.49 Acquired absence of other specified parts of digestive tract; Z98.1 Arthrodesis status; Z79.84 Long term (current) use of oral hypoglycemic drugs; Z92.21 Personal history of antineoplastic chemotherapy; Z92.3 Personal history of irradiation
CPT/HCPCS: 0223U; 36415; 36569; 43239; 43450; 70450; 71045; 71250; 71260; 72125; 74176; 78452; 80048; 80053; 81001; 82550; 82607; 82728; 82746; 82948; 83036; 83540; 83690; 83735; 84466; 84484; 85025; 85379; 87040; 88305; 88342; 93005; 93017; 93306; 93880; 94799; 96361; 99285; A9502; J1100; J1200; J1756; J1940; J2001; J2270; J2405; J2543; J3420; J3480; J7030; J7050; Q0162; Q9967

== ENCOUNTER 2023-11-16 16:31 | Inpatient (IN) | payer BC, MEDICARE ==
[2023-11-15 23:30] VITALS: BP 152/90; PULSE 96; RESP 20; TEMP 98.3; O2SAT 100
[~2023-11-16] VITALS: Ht 162.6 cm; Wt 77.1 kg
[~2023-11-16 16:31] MED LIST changes: +ATORVASTATIN CA40 MG PO; +METFORMIN HCL500 MG PO; +METOPROLOL SUCC50 MG PO; +MYRBETRIQ25 MG PO; +OLMSRTN-AMLDPN1 EAC4 PO; +OMEPRAZOLE40 MG PO; +ONDANSETRON HCL8 MG PO; +VENLAFAXINE HCL75 MG PO
[2023-11-16 16:56] VITALS: TEMP 98.7
[2023-11-16 17:41] LABS: BASOPHILS # (AUTO) 0.1 (0.0-0.1); BASOPHILS % 0.4 % (0.0-1.0); EOSINOPHILS % 0.1 % (0.0-6.0); HEMATOCRIT 36.7 % (34.2-44.1); HEMOGLOBIN 12.1 g/dL (12.0-16.0); LYMPHOCYTES # (AUTO) 2.6 (1.0-3.2); MEAN CORPUSCULAR HEMOGLOBIN 26.9 pg (28-32); MEAN CORPUSCULAR VOLUME 81.6 fL (81-99); MONOCYTES # (AUTO) 0.6 (0.2-0.8); MONOCYTES % 4.4 % (4.4-11.3); NEUTROPHILS # (AUTO) 10.2 (2.1-6.9); NEUTROPHILS % 75.7 % (38.7-80.0); PLATELET COUNT 323 x10e3/uL (140-360); RED CELL DISTRIBUTION WIDTH 14.7 % (11.7-14.4); WHITE BLOOD COUNT 13.44 x10e3/uL (4.8-10.8)
[2023-11-16 17:53] LABS: ALBUMIN 3.5 g/dL (3.5-5.0); ALBUMIN/GLOBULIN RATIO 0.9 (0.8-2.0); BILIRUBIN,TOTAL 0.3 mg/dL (0.2-1.2); CALCIUM 9.1 mg/dL (8.4-10.2); CREATININE, SERUM 1.87 mg/dL (0.57-1.11); TOTAL PROTEIN 7.3 g/dL (6.5-8.1)
[2023-11-16] MEDS: SODIUM CHLORIDE 0.9% 1000ML 1,000 ML IV STA (17:56)
[2023-11-16] MEDS: ACETAMINOPHEN 325 MG TAB PO STA (17:56)
[2023-11-16] MEDS: METOCLOPRAMIDE HCL 10 MG/2ML VIAL IV STA (17:56)
[2023-11-16] MEDS: DIGOXIN INJ 0.25 MG/ML 2 ML AMP IV STA (17:57)
[2023-11-16] MEDS: DILTIAZEM HCL 5 MG/ML 5 ML VIAL IV STA (17:57)
[2023-11-16 18:00] LABS: TROPONIN I 0.078 ng/mL (0-0.300)
[2023-11-16] MEDS: METOPROLOL TARTRATE INJ 1 MG/ML VIAL IV STA (18:31)
[2023-11-16] MEDS: ONDANSETRON HCL INJ 2MG/ML 2ML 2 MG/ML VIAL IV STA (18:31)
[2023-11-16 22:42] VITALS: PULSE 96; RESP 17
[2023-11-16] MEDS: SODIUM CHLORIDE 0.9% 1000ML 1,000 ML IV SCH (22:52)
[2023-11-16] MEDS ORDERED: SERTRALINE HCL50 MG PO (23:45)
[2023-11-17] VITALS (11 sets, daily range): BP systolic 98–194; BP diastolic 81–116; PULSE 71–102; RESP 16–20; TEMP 97.9–98.4; O2SAT 96–100
[2023-11-17 00:25] LABS: CLARITY,URINE HAZY (CLEAR); COLOR,URINE YELLOW (YELLOW); PH,URINE 5.5 (5 - 7)
[2023-11-17 00:26] LABS: BILIRUBIN,URINE SMALL (NEGATIVE); GLUCOSE, URINE NEGATIVE (NEGATIVE); KETONES,URINE NEGATIVE (NEGATIVE); LEUKOCYTE ESTERASE ,URINE NEGATIVE (NEGATIVE); NITRITE,URINE NEGATIVE (NEGATIVE); PROTEIN,URINE DIPSTICK >=300 (NEGATIVE); URINE UROBILINOGEN 0.2 mg/dL (0.2 - 1)
[2023-11-17 00:28] LABS: BACTERIA,URINE MANY /HPF; EPITHELIAL CELLS,URINE MANY /LPF
[2023-11-17] MEDS: Morphine 4mg INJECTION 4 MG/ML INJ IV PRN (00:37)
[2023-11-17] MEDS: ONDANSETRON HCL INJ 2MG/ML 2ML 2 MG/ML VIAL IV PRN (01:39)
[2023-11-17] MEDS: ACETAMINOPHEN 325 MG TAB PO ONE (03:09)
[2023-11-17 05:45] LABS: BASOPHILS # (AUTO) 0.1 (0.0-0.1); BASOPHILS % 0.8 % (0.0-1.0); EOSINOPHILS # (AUTO) 0.2 (0.0-0.4); EOSINOPHILS % 1.3 % (0.0-6.0); HEMATOCRIT 35.2 % (34.2-44.1); LYMPHOCYTES # (AUTO) 3.2 (1.0-3.2); MEAN CORPUSCULAR HEMOGLOBIN 26.5 pg (28-32); MEAN CORPUSCULAR HGB CONC 31.3 g/dL (31-35); MEAN CORPUSCULAR VOLUME 84.8 fL (81-99); MONOCYTES # (AUTO) 0.7 (0.2-0.8); MONOCYTES % 5.5 % (4.4-11.3); NEUTROPHILS # (AUTO) 8.1 (2.1-6.9); NEUTROPHILS % 65.9 % (38.7-80.0); PLATELET COUNT 274 x10e3/uL (140-360); RED BLOOD COUNT 4.15 x10e6/uL (3.6-5.1); RED CELL DISTRIBUTION WIDTH 14.7 % (11.7-14.4); WHITE BLOOD COUNT 12.26 x10e3/uL (4.8-10.8)
[2023-11-17 06:09] LABS: ALBUMIN 3.2 g/dL (3.5-5.0); ALBUMIN/GLOBULIN RATIO 0.9 (0.8-2.0); ANION GAP 16.7 mmol/L (8-16); BILIRUBIN,TOTAL 0.4 mg/dL (0.2-1.2); CALCIUM 8.3 mg/dL (8.4-10.2); CREATININE, SERUM 1.71 mg/dL (0.57-1.11); TOTAL PROTEIN 6.8 g/dL (6.5-8.1)
[2023-11-17 06:15] LABS: POTASSIUM 2.7 mmol/L (3.5-5.1)
[2023-11-17 06:37] LABS: TROPONIN I 0.075 ng/mL (0-0.300)
[2023-11-17] MEDS: POTASSIUM CHLORIDE 20 MEQ TAB CR PO ONE ×2 (09:13→19:02)
[2023-11-17] MEDS: METOPROLOL TARTRATE INJ 1 MG/ML VIAL IV PRN (12:12)
[2023-11-17] MEDS: AMLODIPINE BESYLATE 10 MG TAB PO SCH (12:12)
[2023-11-17 15:00] LABS: TROPONIN I 0.078 ng/mL (0-0.300)
[2023-11-17] MEDS: ATORVASTATIN 40 MG TAB PO SCH (20:31)
[2023-11-17] MEDS: METOPROLOL SUCCINATE 50 MG TAB XL PO SCH (20:31)
[2023-11-18] VITALS: BP 145/99; PULSE 81; RESP 20; TEMP 98.7; O2SAT 100
[2023-11-18 06:15] LABS: BASOPHILS # (AUTO) 0.1 (0.0-0.1); EOSINOPHILS # (AUTO) 0.2 (0.0-0.4); EOSINOPHILS % 2.2 % (0.0-6.0); HEMATOCRIT 32.4 % (34.2-44.1); HEMOGLOBIN 10.5 g/dL (12.0-16.0); LYMPHOCYTES # (AUTO) 1.6 (1.0-3.2); LYMPHOCYTES % 17.4 % (18.0-39.1); MEAN CORPUSCULAR HEMOGLOBIN 27.1 pg (28-32); MEAN CORPUSCULAR HGB CONC 32.4 g/dL (31-35); MEAN CORPUSCULAR VOLUME 83.7 fL (81-99); MONOCYTES # (AUTO) 0.6 (0.2-0.8); MONOCYTES % 6.5 % (4.4-11.3); NEUTROPHILS # (AUTO) 6.6 (2.1-6.9); NEUTROPHILS % 72.6 % (38.7-80.0); PLATELET COUNT 241 x10e3/uL (140-360); RED BLOOD COUNT 3.87 x10e6/uL (3.6-5.1); RED CELL DISTRIBUTION WIDTH 14.8 % (11.7-14.4); WHITE BLOOD COUNT 9.14 x10e3/uL (4.8-10.8)
[2023-11-18 06:28] LABS: CALCIUM 7.9 mg/dL (8.4-10.2); CREATININE, SERUM 1.15 mg/dL (0.57-1.11)
[2023-11-18 08:00] VITALS: BP_SYST 164; BP_SYST 174; BP_DIAS 86; BP_DIAS 90; PULSE 82; RESP 17; TEMP 97.7; O2SAT 100
[2023-11-18] MEDS: PANTOPRAZOLE SOD 40 MG TABEC PO SCH (08:39)
[2023-11-18 08:45] VITALS: BP 174/90; PULSE 82; RESP 17; TEMP 97.7; O2SAT 100
[2023-11-18] MEDS ORDERED: METFORMIN HCL 500 MG TAB PO SCH (09:00)
[2023-11-18] MEDS ORDERED: SERTRALINE HCL 50 MG TAB PO SCH (09:00)
[2023-11-18 12:00] VITALS: BP 168/87; PULSE 77; RESP 19; TEMP 98.3; O2SAT 98
[2023-11-18] MEDS ORDERED: VENLAFAXINE HCL 75 MG TAB PO SCH (12:15)
[2023-11-18] MEDS: POTASSIUM CHLORIDE 20MEQ/100ML 100 ML IV ONE (12:18)
[2023-11-18] MEDS: DEXTROSE 5%/0.45% SOD CHL 1,000 ML IV ONE (12:18)
[2023-11-18] MEDS ORDERED: HYDRALAZINE HCL 20 MG/ML VIAL IV PRN (12:30)
[2023-11-18] MEDS: OLMESARTAN 20 MG TAB PO SCH (15:26)
[2023-11-18] MEDS: VENLAFAXINE HCL 75 MG TAB PO SCH (15:26)
[2023-11-18] MEDS: DEXTROSE 5%/0.9% SOD CHL 1,000 ML IV SCH (16:59)
[2023-11-18] MEDS: ACETAMINOPHEN 325 MG TAB PO PRN (17:00)
[2023-11-18] MEDS: POTASSIUM CHLORIDE 20 MEQ TAB CR PO ONE (17:00)
[2023-11-18 20:00] VITALS: BP 138/70; PULSE 72; RESP 18; TEMP 97.8; O2SAT 99
[2023-11-19] VITALS (8 sets, daily range): BP systolic 123–168; BP diastolic 70–101; PULSE 68–79; RESP 18–19; TEMP 97.5–98.4; O2SAT 98–100
[2023-11-19 06:37] LABS: ANION GAP 12.6 mmol/L (8-16); CALCIUM 8.3 mg/dL (8.4-10.2); CREATININE, SERUM 1.09 mg/dL (0.57-1.11); POTASSIUM 3.6 mmol/L (3.5-5.1)
[2023-11-20] VITALS (7 sets, daily range): BP systolic 113–168; BP diastolic 62–99; PULSE 68–82; RESP 16–18; TEMP 97.3–98.6; O2SAT 97–100
[2023-11-20] MEDS: PROMETHAZINE 12.5MG/ NACL 0.9% 12.5 MG/50 ML BAG IV PRN (12:34)
[2023-11-21] VITALS (8 sets, daily range): BP systolic 128–150; BP diastolic 74–85; PULSE 64–80; RESP 18–21; TEMP 98.2–99; O2SAT 96–100
[2023-11-21 06:23] LABS: BASOPHILS # (AUTO) 0.1 (0.0-0.1); BASOPHILS % 0.6 % (0.0-1.0); EOSINOPHILS # (AUTO) 0.3 (0.0-0.4); EOSINOPHILS % 2.7 % (0.0-6.0); HEMATOCRIT 30.8 % (34.2-44.1); HEMOGLOBIN 9.9 g/dL (12.0-16.0); LYMPHOCYTES # (AUTO) 1.7 (1.0-3.2); LYMPHOCYTES % 16.3 % (18.0-39.1); MEAN CORPUSCULAR HEMOGLOBIN 27.3 pg (28-32); MEAN CORPUSCULAR HGB CONC 32.1 g/dL (31-35); MEAN CORPUSCULAR VOLUME 85.1 fL (81-99); MONOCYTES # (AUTO) 0.7 (0.2-0.8); MONOCYTES % 6.8 % (4.4-11.3); NEUTROPHILS # (AUTO) 7.7 (2.1-6.9); NEUTROPHILS % 73.3 % (38.7-80.0); PLATELET COUNT 264 x10e3/uL (140-360); RED BLOOD COUNT 3.62 x10e6/uL (3.6-5.1); RED CELL DISTRIBUTION WIDTH 15.4 % (11.7-14.4); WHITE BLOOD COUNT 10.49 x10e3/uL (4.8-10.8)
[2023-11-21 06:42] LABS: ANION GAP 11.2 mmol/L (8-16); CALCIUM 8.1 mg/dL (8.4-10.2); CREATININE, SERUM 0.92 mg/dL (0.57-1.11); MAGNESIUM 1.8 MG/DL (1.3-2.1); PHOSPHORUS 1.9 MG/DL (2.3-4.7); POTASSIUM 3.2 mmol/L (3.5-5.1)
[2023-11-21] MEDS: LORAZEPAM INJ 2 MG/ML VIAL IV ONE (07:50)
[2023-11-21] MEDS ORDERED: POTASSIUM PHOSPHATE 15 MM in SODIUM CHLORIDE 0.9% 250ML 250 ML IV SCH (11:15)
[2023-11-21] MEDS ORDERED: SODIUM CHLORIDE 0.9% 250ML 250 ML ONE (12:29)
[2023-11-21] MEDS: POTASSIUM CHLORIDE 20 MEQ TAB CR PO ONE (12:30)
[2023-11-21] MEDS: ACETAMIN/BUTALBITAL/CAFFEINE TAB PO PRN ×2 (12:32→18:50)
[2023-11-22 00:45] VITALS: BP 148/81; PULSE 67; RESP 19; TEMP 98.3; O2SAT 100
[2023-11-22 05:11] VITALS: BP 138/84; PULSE 75; RESP 19; TEMP 98.7; O2SAT 100
[2023-11-22 06:07] LABS: BASOPHILS # (AUTO) 0.1 (0.0-0.1); BASOPHILS % 0.6 % (0.0-1.0); EOSINOPHILS # (AUTO) 0.3 (0.0-0.4); EOSINOPHILS % 2.2 % (0.0-6.0); HEMATOCRIT 33.5 % (34.2-44.1); HEMOGLOBIN 9.9 g/dL (12.0-16.0); LYMPHOCYTES # (AUTO) 1.8 (1.0-3.2); LYMPHOCYTES % 15.4 % (18.0-39.1); MEAN CORPUSCULAR HEMOGLOBIN 27.3 pg (28-32); MEAN CORPUSCULAR HGB CONC 29.6 g/dL (31-35); MEAN CORPUSCULAR VOLUME 92.3 fL (81-99); MONOCYTES # (AUTO) 0.7 (0.2-0.8); MONOCYTES % 5.9 % (4.4-11.3); NEUTROPHILS # (AUTO) 8.6 (2.1-6.9); NEUTROPHILS % 75.5 % (38.7-80.0); PLATELET COUNT 200 x10e3/uL (140-360); RED BLOOD COUNT 3.63 x10e6/uL (3.6-5.1); RED CELL DISTRIBUTION WIDTH 15.9 % (11.7-14.4); RETICULOCYTE % 2.3 % (0.8-2.2); WHITE BLOOD COUNT 11.42 x10e3/uL (4.8-10.8)
[2023-11-22 06:37] LABS: ANION GAP 15.5 mmol/L (8-16); CALCIUM 7.9 mg/dL (8.4-10.2); PHOSPHORUS 1.8 MG/DL (2.3-4.7); POTASSIUM 3.5 mmol/L (3.5-5.1)
[2023-11-22 06:49] LABS: FERRITIN 65.31 ng/mL (4.63-204.00)
[2023-11-22 06:55] LABS: FOLATE 8.2 ng/mL (7.0-15.4)
[2023-11-22 08:00] VITALS: BP 142/86; PULSE 74; RESP 19; TEMP 98.3; O2SAT 98
[2023-11-22] MEDS: POTASSIUM CHLORIDE 10MEQ EA PO ONE (08:12)
[2023-11-22] MEDS: POTASSIUM PHOSPHATE 15 MM in SODIUM CHLORIDE 0.9% 250ML 250 ML IV SCH (09:22)
[2023-11-22] MEDS ORDERED: VITAMIN C 500500 MG PO (10:49)
[2023-11-22] MEDS ORDERED: K-PHOS NEUTRAL250 MG PO (10:49)
[2023-11-22] MEDS ORDERED: NORVASC10 MG PO (10:49)
[2023-11-22] MEDS ORDERED: FIORICET 50-301 EACH PO (10:49)
[2023-11-22] MEDS ORDERED: ONDANSETRON ODT4 MG PO (10:49)
[2023-11-22 12:00] VITALS: BP 136/80; PULSE 73; RESP 19; TEMP 98.1; O2SAT 99
[2023-11-22 16:00] VITALS: BP 140/84; PULSE 76; RESP 18; TEMP 98.6; O2SAT 99
[2023-11-22] MEDS: SODIUM FERRIC GLUCONATE COMPLX 125 MG in SODIUM CHLORIDE 0.9% 100 ML IV SCH (17:35)
[2023-11-22] MEDS: FERROUS SULFATE 325 MG TAB PO SCH (18:03)
[2023-11-22] MEDS ORDERED: PANTOPRAZOLE SOD 40 MG TABEC PO SCH (21:00)
[2023-11-23] MEDS ORDERED: PHOSPHORUS 250 MG TAB PO SCH (09:00)
== END 2023-11-22 18:55 | disposition home or self-care (01) | DRG 305 ==
LOC: ER 16:55 → ERHOLD 20:11 → MED/SURG2 23:24 → OBSVTOIN 11-18 09:10 → MED/SURG2 11-18 12:25
PROVIDERS: ADMIT Internal Medicine; ATTEND Internal Medicine
DX: I16.0 Hypertensive urgency (principal); I67.4 Hypertensive encephalopathy; I47.19 Other supraventricular tachycardia; N17.9 Acute kidney failure, unspecified; N39.0 Urinary tract infection, site not specified; I12.9 Hypertensive chronic kidney disease with stage 1 through stage 4 chronic kidney disease, or unspecified chronic kidney disease; E83.39 Other disorders of phosphorus metabolism; E11.22 Type 2 diabetes mellitus with diabetic chronic kidney disease; D50.9 Iron deficiency anemia, unspecified; E78.49 Other hyperlipidemia; R44.1 Visual hallucinations; N18.30 Chronic kidney disease, stage 3 unspecified; G89.4 Chronic pain syndrome; I25.10 Atherosclerotic heart disease of native coronary artery without angina pectoris; R51.9 Headache, unspecified; K21.9 Gastro-esophageal reflux disease without esophagitis; R11.2 Nausea with vomiting, unspecified; E87.6 Hypokalemia; I48.91 Unspecified atrial fibrillation; F32.A Depression, unspecified; K59.00 Constipation, unspecified; M54.9 Dorsalgia, unspecified; Z79.84 Long term (current) use of oral hypoglycemic drugs; Z85.3 Personal history of malignant neoplasm of breast; I25.2 Old myocardial infarction; Z95.5 Presence of coronary angioplasty implant and graft; Z95.1 Presence of aortocoronary bypass graft; Z98.1 Arthrodesis status; Z90.49 Acquired absence of other specified parts of digestive tract; Z90.710 Acquired absence of both cervix and uterus; Z88.2 Allergy status to sulfonamides
CPT/HCPCS: 36415; 70450; 70551; 71045; 80048; 80053; 81001; 82550; 82607; 82728; 82746; 82948; 83540; 83605; 83735; 83880; 84100; 84466; 84484; 85025; 85045; 87040; 87086; 93005; 93306; 94799; 95819; 99284; G0378; J1160; J2270; J2405; J2470; J2543; J2550; J2765; J2916; J3480; J7030; J7042; J7050; U0002

== ENCOUNTER 2024-05-04 17:02 | Inpatient (IN) | payer BC, MEDICARE ==
[~2024-05-04] VITALS: Ht 160 cm; Wt 72.7 kg
[~2024-05-04 17:02] MED LIST changes: +FIORICET 50-301 EACH PO; +K-PHOS NEUTRAL250 MG PO; +NORVASC10 MG PO; +ONDANSETRON ODT4 MG PO; +SERTRALINE HCL50 MG PO; +VITAMIN C 500500 MG PO
[2024-05-04 17:46] VITALS: TEMP 97.7
[2024-05-04 18:46] LABS: BASOPHILS # (AUTO) 0.1 (0.0-0.1); BASOPHILS % 0.6 % (0.0-1.0); EOSINOPHILS # (AUTO) 0.3 (0.0-0.4); EOSINOPHILS % 2.9 % (0.0-6.0); HEMATOCRIT 29.4 % (34.2-44.1); HEMOGLOBIN 8.7 g/dL (12.0-16.0); LYMPHOCYTES # (AUTO) 2.1 (1.0-3.2); LYMPHOCYTES % 20.1 % (18.0-39.1); MEAN CORPUSCULAR HEMOGLOBIN 26.4 pg (28-32); MEAN CORPUSCULAR HGB CONC 29.6 g/dL (31-35); MEAN CORPUSCULAR VOLUME 89.4 fL (81-99); MONOCYTES # (AUTO) 0.6 (0.2-0.8); MONOCYTES % 5.5 % (4.4-11.3); NEUTROPHILS # (AUTO) 7.3 (2.1-6.9); NEUTROPHILS % 70.5 % (38.7-80.0); PLATELET COUNT 290 x10e3/uL (140-360); RED BLOOD COUNT 3.29 x10e6/uL (3.6-5.1); RED CELL DISTRIBUTION WIDTH 14.3 % (11.7-14.4)
[2024-05-04 19:03] LABS: ALBUMIN 3.1 g/dL (3.5-5.0); ALBUMIN/GLOBULIN RATIO 0.8 (0.8-2.0); ANION GAP 18.8 mmol/L (8-16); BILIRUBIN,TOTAL 0.5 mg/dL (0.2-1.2); CALCIUM 8.7 mg/dL (8.4-10.2); CREATININE, SERUM 3.14 mg/dL (0.57-1.11); POTASSIUM 3.8 mmol/L (3.5-5.1); TOTAL PROTEIN 7.2 g/dL (6.5-8.1)
[2024-05-04] MEDS: SODIUM CHLORIDE 0.9% 1000ML 1,000 ML IV ONE (19:37)
[2024-05-04 19:53] LABS: CLARITY,URINE CLEAR (CLEAR); COLOR,URINE YELLOW (YELLOW); LEUKOCYTE ESTERASE ,URINE TRACE (NEGATIVE); NITRITE,URINE NEGATIVE (NEGATIVE); PH,URINE 5.5 (5 - 7)
[2024-05-04 19:54] LABS: BILIRUBIN,URINE 1+ (NEGATIVE); GLUCOSE, URINE NEGATIVE (NEGATIVE); KETONES,URINE NEGATIVE (NEGATIVE); PROTEIN,URINE DIPSTICK 1+ (NEGATIVE); URINE UROBILINOGEN 0.2 mg/dL (0.2 - 1)
[2024-05-04 20:00] LABS: BACTERIA,URINE MANY /HPF; EPITHELIAL CELLS,URINE FEW /LPF; MUCUS,URINE MANY (RARE); RBC,URINE 21-50 /HPF (0-5); RENAL EPITHELIAL CELLS,URINE MODERATE; TRANSITIONAL EPI CELLS,URINE FEW; WBC,URINE (MAN) >50 /HPF (0-5)
[2024-05-05] VITALS (15 sets, daily range): BP systolic 105–142; BP diastolic 71–95; PULSE 45–99; RESP 16–20; TEMP 98–99.9; O2SAT 91–100
[2024-05-05] MEDS ORDERED: SODIUM CHLORIDE FLUSH 10 ML SYR INJ PRN (00:30)
[2024-05-05] MEDS: FUROSEMIDE INJ 10 MG/ML 4 ML VIAL IV ONE (01:04)
[2024-05-05 03:45] LABS: TROPONIN I 0.01 ng/mL (0-0.300)
[2024-05-05] MEDS: SODIUM CHLORIDE 0.9% 250ML 250 ML ONE (09:03)
[2024-05-05 14:31] LABS: TROPONIN I 0.015 ng/mL (0-0.300)
[2024-05-05] MEDS: ONDANSETRON HCL INJ 2MG/ML 2ML 2 MG/ML VIAL IV PRN (21:37)
[2024-05-05] MEDS: METOPROLOL SUCCINATE 50 MG TAB XL PO SCH (21:38)
[2024-05-05] MEDS: AMLODIPINE BESYLATE 10 MG TAB PO SCH (21:38)
[2024-05-05] MEDS: ATORVASTATIN 40 MG TAB PO SCH (21:38)
[2024-05-05] MEDS: VENLAFAXINE HCL 75 MG TAB PO SCH (21:39)
[2024-05-05] MEDS: TIZANIDINE HCL 4 MG TAB PO SCH (21:39)
[2024-05-05] MEDS: LOSARTAN POTASSIUM 25 MG TAB PO SCH (21:39)
[2024-05-05] MEDS: SODIUM CHLORIDE 0.9% 1000ML 1,000 ML IV SCH (21:40)
[2024-05-05] MEDS: HYDROCODONE/APAP 7.5MG-325MG 1 EA TAB PO PRN (21:40)
[2024-05-06] VITALS (12 sets, daily range): BP systolic 100–135; BP diastolic 62–77; PULSE 59–94; RESP 17–20; TEMP 97.5–99.8; O2SAT 93–100
[2024-05-06 05:21] LABS: BASOPHILS # (AUTO) 0.1 (0.0-0.1); BASOPHILS % 0.7 % (0.0-1.0); EOSINOPHILS # (AUTO) 0.3 (0.0-0.4); HEMATOCRIT 25.4 % (34.2-44.1); HEMOGLOBIN 8.3 g/dL (12.0-16.0); LYMPHOCYTES # (AUTO) 2.7 (1.0-3.2); MEAN CORPUSCULAR HEMOGLOBIN 26.9 pg (28-32); MEAN CORPUSCULAR HGB CONC 32.7 g/dL (31-35); MEAN CORPUSCULAR VOLUME 82.5 fL (81-99); MONOCYTES # (AUTO) 0.6 (0.2-0.8); MONOCYTES % 6.8 % (4.4-11.3); PLATELET COUNT 285 x10e3/uL (140-360); RED BLOOD COUNT 3.08 x10e6/uL (3.6-5.1); RED CELL DISTRIBUTION WIDTH 14.1 % (11.7-14.4); WHITE BLOOD COUNT 8.65 x10e3/uL (4.8-10.8)
[2024-05-06 05:44] LABS: % IRON SATURATION 15 % (15-50); IRON 39 ug/dL (50-170); TOTAL IRON BINDING CAPACITY 265 ug/dL (261-478); TRANSFERRIN 189 mg/dL (180-382)
[2024-05-06 05:51] LABS: ALBUMIN 2.7 g/dL (3.5-5.0); ALBUMIN/GLOBULIN RATIO 0.7 (0.8-2.0); ALKALINE PHOSPHATASE 64 IU/L (40-150); ANION GAP 13.3 mmol/L (8-16); BILIRUBIN,TOTAL 0.2 mg/dL (0.2-1.2); BLOOD UREA NITROGEN 31 mg/dL (7-26); BUN/CREATININE RATIO 15 (6-25); CALCIUM 8.3 mg/dL (8.4-10.2); CARBON DIOXIDE 21 mmol/L (22-29); CHLORIDE 98 mmol/L (98-107); CREATININE, SERUM 2.12 mg/dL (0.57-1.11); EST GLOMERULAR FILTRATION RATE 25 ML/MIN (>=60); GLUCOSE 117 mg/dL (74-118); SODIUM 129 mmol/L (136-145); TOTAL PROTEIN 6.4 g/dL (6.5-8.1)
[2024-05-06 05:55] LABS: ALANINE AMINOTRANSFERASE < 6 IU/L (0-55); POTASSIUM 3.3 mmol/L (3.5-5.1)
[2024-05-06 06:17] LABS: TROPONIN I 0.048 ng/mL (0-0.300)
[2024-05-06] MEDS ORDERED: LOSARTAN POTASSIUM 25 MG TAB PO SCH (09:00)
[2024-05-06] MEDS ORDERED: AMLODIPINE BESYLATE 10 MG TAB PO SCH (09:00)
[2024-05-06] MEDS: METFORMIN HCL 500 MG TAB PO SCH (09:00)
[2024-05-06] MEDS: SERTRALINE HCL 50 MG TAB PO SCH (09:55)
[2024-05-06] MEDS: PANTOPRAZOLE SOD 40 MG TABEC PO SCH (09:55)
[2024-05-06] MEDS: SODIUM CHLORIDE 0.9% 1000ML 1,000 ML IV SCH (09:56)
[2024-05-06] MEDS: POTASSIUM CHLORIDE 20 MEQ TAB CR PO STA (14:32)
[2024-05-06] MEDS: DOCUSATE SODIUM LIQD 100 MG/10 ML UDC NG SCH (21:04)
[2024-05-07] VITALS (8 sets, daily range): BP systolic 91–137; BP diastolic 64–84; PULSE 63–88; RESP 18–21; TEMP 98.1–98.8; O2SAT 95–100
[2024-05-07 08:32] LABS: BASOPHILS # (AUTO) 0.1 (0.0-0.1); BASOPHILS % 0.7 % (0.0-1.0); EOSINOPHILS # (AUTO) 0.4 (0.0-0.4); EOSINOPHILS % 4.4 % (0.0-6.0); HEMOGLOBIN 8.3 g/dL (12.0-16.0); LYMPHOCYTES # (AUTO) 2.1 (1.0-3.2); LYMPHOCYTES % 22.2 % (18.0-39.1); MEAN CORPUSCULAR HEMOGLOBIN 26.7 pg (28-32); MEAN CORPUSCULAR HGB CONC 29.6 g/dL (31-35); MONOCYTES # (AUTO) 0.6 (0.2-0.8); MONOCYTES % 6.1 % (4.4-11.3); NEUTROPHILS # (AUTO) 6.3 (2.1-6.9); NEUTROPHILS % 66.1 % (38.7-80.0); PLATELET COUNT 265 x10e3/uL (140-360); RED BLOOD COUNT 3.11 x10e6/uL (3.6-5.1); RED CELL DISTRIBUTION WIDTH 14.1 % (11.7-14.4); WHITE BLOOD COUNT 9.58 x10e3/uL (4.8-10.8)
[2024-05-07 08:53] LABS: CALCIUM 8.2 mg/dL (8.4-10.2); CREATININE, SERUM 1.95 mg/dL (0.57-1.11)
[2024-05-07] MEDS: SODIUM BICARBONATE 650 MG TAB PO SCH (16:15)
[2024-05-08] VITALS (47 sets, daily range): BP systolic 86–137; BP diastolic 51–103; PULSE 51–132; RESP 15–24; TEMP 97.5–98.5; O2SAT 80–100
[2024-05-08 05:52] LABS: ANION GAP 14.4 mmol/L (8-16); CALCIUM 8.1 mg/dL (8.4-10.2); CREATININE, SERUM 1.61 mg/dL (0.57-1.11); POTASSIUM 4.4 mmol/L (3.5-5.1)
[2024-05-08 07:40] LABS: TOTAL PROTEIN, URINE < 6.8 mg/dL (1-14)
[2024-05-08] MEDS: ALBUTEROL/IPRATROPIUM 3 ML NEB NEB PRN (09:20)
[2024-05-08] MEDS: FUROSEMIDE INJ 10 MG/ML 4 ML VIAL IV ONE (09:47)
[2024-05-08 10:16] LABS: ANION GAP 19.5 mmol/L (8-16); BLOOD UREA NITROGEN 24 mg/dL (7-26); BUN/CREATININE RATIO 13 (6-25); CALCIUM 8.5 mg/dL (8.4-10.2); CARBON DIOXIDE 13 mmol/L (22-29); CHLORIDE 104 mmol/L (98-107); CREATININE, SERUM 1.79 mg/dL (0.57-1.11); EST GLOMERULAR FILTRATION RATE 30 ML/MIN (>=60); GLUCOSE 222 mg/dL (74-118); POTASSIUM 4.5 mmol/L (3.5-5.1); SODIUM 132 mmol/L (136-145)
[2024-05-08] MEDS: MIDAZOLAM HCL 2 MG/2 ML VIAL IV STA (10:20)
[2024-05-08] MEDS: METHYLPREDNISOLONE SOD SUCC 125 MG/2ML VIAL IV ONE (10:28)
[2024-05-08 10:46] LABS: ETHANOL < 10.0 mg/dL (0.0-10.0); SALICYLATE < 5.0 mg/dL (0-30)
[2024-05-08] MEDS: PROPOFOL IV EMULSION 10MG/ML 100 ML IV PRN (11:07)
[2024-05-08 11:09] LABS: ABG HCO3 14 mmol/L (22-26); ABG PCO2 43 mmHg (35-45); ABG PH 7.11 (7.35-7.45); ABG PO2 505 mmHg (80-105); ABG TCO2 15
[2024-05-08] MEDS ORDERED: SODIUM CHLORIDE 0.9% 1000ML 2,000 ML IV ONE (11:10)
[2024-05-08] MEDS: SODIUM CHLORIDE 0.9% 1000ML 2,000 ML IV ONE (11:25)
[2024-05-08] MEDS: Vancomycin IV 1 GM in SODIUM CHLORIDE 0.9% 250ML 250 ML IV STA (11:38)
[2024-05-08] MEDS ORDERED: SUCCINYLCHOLINE CHLORIDE 20 MG/ML 10ML VIAL ONE (12:14)
[2024-05-08] MEDS ORDERED: MIDAZOLAM HCL 2 MG/2 ML VIAL ONE (12:14)
[2024-05-08] MEDS ORDERED: ETOMIDATE 2 MG/ML 10 ML INJ IV ONE (12:14)
[2024-05-08 12:29] LABS: ABG HCO3 17 mmol/L (22-26); ABG PCO2 36 mmHg (35-45); ABG PH 7.29 (7.35-7.45); ABG PO2 82 mmHg (80-105); ABG TCO2 18
[2024-05-08] MEDS: MIDAZOLAM HCL 2 MG/2 ML VIAL IV ONE (13:30)
[2024-05-08] MEDS: Vancomycin IV 1 GM in SODIUM CHLORIDE 0.9% 250ML 250 ML IV ONE (13:32)
[2024-05-08] MEDS ORDERED: DEXTROSE 50% SYRINGE 50 ML IV PRN (15:15)
[2024-05-08] MEDS: METRONIDAZOLE 500MG/NS 100ML 100 ML IV SCH (15:57)
[2024-05-08] MEDS: METOCLOPRAMIDE HCL 10 MG/2ML VIAL IV SCH (15:57)
[2024-05-08 17:56] LABS: ALBUMIN 2.8 g/dL (3.5-5.0); ALBUMIN/GLOBULIN RATIO 0.7 (0.8-2.0); ANION GAP 18.1 mmol/L (8-16); BILIRUBIN,TOTAL 0.7 mg/dL (0.2-1.2); CALCIUM 7.8 mg/dL (8.4-10.2); CREATININE, SERUM 1.61 mg/dL (0.57-1.11); POTASSIUM 4.1 mmol/L (3.5-5.1); TOTAL PROTEIN 6.7 g/dL (6.5-8.1)
[2024-05-08] MEDS: SODIUM BICARBONATE 8.4% VIAL 50 ML in SODIUM CHLORIDE 0.45% 1,000 ML IV SCH (17:58)
[2024-05-08] MEDS: INSULIN REGULAR, HUMAN 100 UNIT/1 ML SQ SCH (18:16)
[2024-05-08] MEDS: SODIUM CHLORIDE 0.9% 250ML IRRIG IR SCH (18:23)
[2024-05-08] MEDS: NITROGLYCERIN 2% OINT 1 GM PKT TOP ONE (19:15)
[2024-05-08] MEDS: MIDAZOLAM HCL 2 MG/2 ML VIAL ONE (19:15)
[2024-05-09] VITALS (50 sets, daily range): BP systolic 94–151; BP diastolic 62–113; PULSE 73–150; RESP 15–30; TEMP 98–100.1; O2SAT 11–100
[2024-05-09 05:33] LABS: BASOPHILS # (AUTO) 0.1 (0.0-0.1); BASOPHILS % 0.2 % (0.0-1.0); EOSINOPHILS # (AUTO) 0.1 (0.0-0.4); EOSINOPHILS % 0.6 % (0.0-6.0); HEMATOCRIT 31.9 % (34.2-44.1); HEMOGLOBIN 9.9 g/dL (12.0-16.0); LYMPHOCYTES # (AUTO) 0.9 (1.0-3.2); LYMPHOCYTES % 3.7 % (18.0-39.1); MEAN CORPUSCULAR HEMOGLOBIN 26.8 pg (28-32); MEAN CORPUSCULAR VOLUME 86.2 fL (81-99); MONOCYTES # (AUTO) 0.8 (0.2-0.8); MONOCYTES % 3.3 % (4.4-11.3); NEUTROPHILS # (AUTO) 21.9 (2.1-6.9); NEUTROPHILS % 91.8 % (38.7-80.0); PLATELET COUNT 305 x10e3/uL (140-360); RED CELL DISTRIBUTION WIDTH 14.4 % (11.7-14.4)
[2024-05-09 06:02] LABS: ANION GAP 17.2 mmol/L (8-16); CALCIUM 7.9 mg/dL (8.4-10.2); CREATININE, SERUM 1.63 mg/dL (0.57-1.11)
[2024-05-09 06:06] LABS: POTASSIUM 3.2 mmol/L (3.5-5.1)
[2024-05-09 07:57] LABS: ABG PCO2 27 mmHg (35-45)
[2024-05-09 07:58] LABS: ABG HCO3 17 mmol/L (22-26); ABG PO2 136 mmHg (80-105); ABG TCO2 18
[2024-05-09] MEDS: VANCOMYCIN 250MG/5ML ORAL SOLN PO SCH (08:15)
[2024-05-09] MEDS: FUROSEMIDE INJ 10 MG/ML 4 ML VIAL IV ONE (08:20)
[2024-05-09 08:53] LABS: LYMPHOCYTES % (MANUAL) 2 % (19-48); MONOCYTES % (MANUAL) 2 % (3.4-9.0); NEUTROPHILS % (MANUAL) 96 % (40-74); PLATELET ESTIMATE ADEQUATE; PLATELET MORPHOLOGY COMMENT NORMAL; RBC MORPHOLOGY COMMENT NORMAL
[2024-05-09] MEDS: SODIUM BICARBONATE 8.4% SYRING 150 ML in STERILE WATER IV SOLN 1,000 ML IV SCH (09:22)
[2024-05-09] MEDS: NYSTATIN 15 GM POWDER UD BTL TOP SCH (17:35)
[2024-05-09] MEDS: POTASSIUM CHLORIDE 20MEQ/100ML 200 ML IV ONE (17:50)
[2024-05-09] MEDS: CYANOCOBALAMIN INJ 1,000 MCG/ML VIAL IM ONE (22:30)
[2024-05-10] VITALS (30 sets, daily range): BP systolic 95–146; BP diastolic 60–91; PULSE 29–128; RESP 16–34; TEMP 97.9–99.1; O2SAT 92–100
[2024-05-10 06:54] LABS: BASOPHILS # (AUTO) 0.1 (0.0-0.1); BASOPHILS % 0.3 % (0.0-1.0); EOSINOPHILS % 0.2 % (0.0-6.0); HEMATOCRIT 28.2 % (34.2-44.1); HEMOGLOBIN 8.7 g/dL (12.0-16.0); LYMPHOCYTES # (AUTO) 1.3 (1.0-3.2); LYMPHOCYTES % 6.7 % (18.0-39.1); MEAN CORPUSCULAR HEMOGLOBIN 26.6 pg (28-32); MEAN CORPUSCULAR HGB CONC 30.9 g/dL (31-35); MEAN CORPUSCULAR VOLUME 86.2 fL (81-99); MONOCYTES # (AUTO) 0.9 (0.2-0.8); MONOCYTES % 4.4 % (4.4-11.3); NEUTROPHILS # (AUTO) 17.7 (2.1-6.9); NEUTROPHILS % 87.9 % (38.7-80.0); PLATELET COUNT 266 x10e3/uL (140-360); RED BLOOD COUNT 3.27 x10e6/uL (3.6-5.1); RED CELL DISTRIBUTION WIDTH 14.6 % (11.7-14.4); WHITE BLOOD COUNT 20.11 x10e3/uL (4.8-10.8)
[2024-05-10 07:25] LABS: ALBUMIN 2.5 g/dL (3.5-5.0); ALBUMIN/GLOBULIN RATIO 0.7 (0.8-2.0); ANION GAP 17.7 mmol/L (8-16); BILIRUBIN,TOTAL 0.4 mg/dL (0.2-1.2); CALCIUM 8.3 mg/dL (8.4-10.2); CREATININE, SERUM 1.28 mg/dL (0.57-1.11); TOTAL PROTEIN 6.1 g/dL (6.5-8.1)
[2024-05-10 07:33] LABS: POTASSIUM 2.7 mmol/L (3.5-5.1)
[2024-05-10] MEDS: CEFTRIAXONE 2 GM in SODIUM CHLORIDE 0.9% 100 ML IV SCH (08:54)
[2024-05-10] MEDS: IRON SUCROSE 100 MG in SODIUM CHLORIDE 0.9% 100 ML IV SCH (08:54)
[2024-05-10] MEDS: CYANOCOBALAMIN INJ 1,000 MCG/ML VIAL IM SCH (09:00)
[2024-05-10 09:36] LABS: LYMPHOCYTES % (MANUAL) 3 % (19-48); MONOCYTES % (MANUAL) 3 % (3.4-9.0); NEUTROPHILS % (MANUAL) 94 % (40-74); PLATELET ESTIMATE ADEQUATE; PLATELET MORPHOLOGY COMMENT NORMAL; RBC MORPHOLOGY COMMENT NORMAL
[2024-05-10] MEDS: POTASSIUM CHLORIDE 20 MEQ TAB CR PO ONE ×3 (14:17→15:47)
[2024-05-10] MEDS: SODIUM CHLORIDE 0.9% 250ML 250 ML ONE (19:30)
[2024-05-11] VITALS (18 sets, daily range): BP systolic 81–132; BP diastolic 55–85; PULSE 72–118; RESP 13–26; TEMP 97.3–98.4; O2SAT 93–100
[2024-05-11 07:30] LABS: BASOPHILS # (AUTO) 0.1 (0.0-0.1); BASOPHILS % 0.4 % (0.0-1.0); EOSINOPHILS # (AUTO) 0.3 (0.0-0.4); EOSINOPHILS % 1.6 % (0.0-6.0); HEMATOCRIT 25.6 % (34.2-44.1); LYMPHOCYTES % 9.6 % (18.0-39.1); MEAN CORPUSCULAR HEMOGLOBIN 26.5 pg (28-32); MEAN CORPUSCULAR HGB CONC 31.3 g/dL (31-35); MEAN CORPUSCULAR VOLUME 84.8 fL (81-99); MONOCYTES # (AUTO) 0.8 (0.2-0.8); NEUTROPHILS # (AUTO) 17.2 (2.1-6.9); NEUTROPHILS % 83.5 % (38.7-80.0); RED BLOOD COUNT 3.02 x10e6/uL (3.6-5.1); RED CELL DISTRIBUTION WIDTH 14.8 % (11.7-14.4)
[2024-05-11 07:34] LABS: PLATELET COUNT 159 x10e3/uL (140-360)
[2024-05-11 07:51] LABS: ALBUMIN 2.5 g/dL (3.5-5.0); ALBUMIN/GLOBULIN RATIO 0.7 (0.8-2.0); ANION GAP 16.6 mmol/L (8-16); BILIRUBIN,TOTAL 0.3 mg/dL (0.2-1.2); CALCIUM 8.1 mg/dL (8.4-10.2); CREATININE, SERUM 1.64 mg/dL (0.57-1.11); POTASSIUM 3.6 mmol/L (3.5-5.1); TOTAL PROTEIN 5.9 g/dL (6.5-8.1)
[2024-05-11 10:24] LABS: EOSINOPHILS % (MANUAL) 1 % (0-7); LYMPHOCYTES % (MANUAL) 7 % (19-48); MONOCYTES % (MANUAL) 3 % (3.4-9.0); NEUTROPHILS % (MANUAL) 87 % (40-74); REACTIVE LYMPHOCYTES 2
[2024-05-11 10:25] LABS: PLATELET ESTIMATE ADEQUATE; PLATELET MORPHOLOGY COMMENT NORMAL; POLYCHROMASIA FEW
[2024-05-11] MEDS: POTASSIUM CHLORIDE 20 MEQ TAB CR PO ONE (18:04)
[2024-05-11] MEDS: LACTATED RINGER'S 1,000 ML INJ SCH (18:16)
[2024-05-12] VITALS (12 sets, daily range): BP systolic 91–130; BP diastolic 53–91; PULSE 67–112; RESP 16–20; TEMP 97.7–98.2; O2SAT 94–100
[2024-05-12] MEDS: SODIUM CHLORIDE 0.9% 500ML 500 ML IV STA (02:44)
[2024-05-12 08:01] LABS: ALBUMIN 2.4 g/dL (3.5-5.0); ALBUMIN/GLOBULIN RATIO 0.8 (0.8-2.0); ANION GAP 13.9 mmol/L (8-16); BILIRUBIN,TOTAL 0.2 mg/dL (0.2-1.2); CALCIUM 7.9 mg/dL (8.4-10.2); CREATININE, SERUM 1.53 mg/dL (0.57-1.11); POTASSIUM 3.9 mmol/L (3.5-5.1); TOTAL PROTEIN 5.6 g/dL (6.5-8.1)
[2024-05-12 08:30] LABS: BASOPHILS # (AUTO) 0.1 (0.0-0.1); BASOPHILS % 0.5 % (0.0-1.0); EOSINOPHILS # (AUTO) 0.4 (0.0-0.4); EOSINOPHILS % 2.6 % (0.0-6.0); HEMATOCRIT 23.6 % (34.2-44.1); HEMOGLOBIN 7.5 g/dL (12.0-16.0); LYMPHOCYTES # (AUTO) 1.3 (1.0-3.2); LYMPHOCYTES % 9.4 % (18.0-39.1); MEAN CORPUSCULAR HEMOGLOBIN 26.8 pg (28-32); MEAN CORPUSCULAR HGB CONC 31.8 g/dL (31-35); MEAN CORPUSCULAR VOLUME 84.3 fL (81-99); MONOCYTES # (AUTO) 0.9 (0.2-0.8); MONOCYTES % 6.2 % (4.4-11.3); NEUTROPHILS # (AUTO) 11.4 (2.1-6.9); NEUTROPHILS % 80.4 % (38.7-80.0); PLATELET COUNT 212 x10e3/uL (140-360); RED CELL DISTRIBUTION WIDTH 14.7 % (11.7-14.4); WHITE BLOOD COUNT 14.21 x10e3/uL (4.8-10.8)
[2024-05-12 13:19] LABS: CLARITY,URINE TURBID (CLEAR); COLOR,URINE YELLOW (YELLOW)
[2024-05-12 13:20] LABS: PH,URINE 6 (5 - 7)
[2024-05-12 13:21] LABS: BILIRUBIN,URINE SMALL (NEGATIVE); GLUCOSE, URINE NEGATIVE (NEGATIVE); KETONES,URINE TRACE (NEGATIVE); LEUKOCYTE ESTERASE ,URINE MODERATE (NEGATIVE); NITRITE,URINE NEGATIVE (NEGATIVE); PROTEIN,URINE DIPSTICK 2+ (NEGATIVE); URINE UROBILINOGEN 0.2 mg/dL (0.2 - 1)
[2024-05-12 13:25] LABS: BACTERIA,URINE MANY /HPF; EPITHELIAL CELLS,URINE MODERATE /LPF; RBC,URINE >50 /HPF (0-5); WBC,URINE (MAN) >50 /HPF (0-5)
[2024-05-13] VITALS (9 sets, daily range): BP systolic 80–148; BP diastolic 57–97; PULSE 62–100; RESP 16–20; TEMP 97.5–98.6; O2SAT 95–100
[2024-05-13 05:48] LABS: BASOPHILS # (AUTO) 0.1 (0.0-0.1); BASOPHILS % 0.5 % (0.0-1.0); EOSINOPHILS # (AUTO) 0.3 (0.0-0.4); EOSINOPHILS % 1.8 % (0.0-6.0); HEMOGLOBIN 7.7 g/dL (12.0-16.0); LYMPHOCYTES % 13.3 % (18.0-39.1); MEAN CORPUSCULAR HEMOGLOBIN 27.1 pg (28-32); MEAN CORPUSCULAR HGB CONC 32.1 g/dL (31-35); MEAN CORPUSCULAR VOLUME 84.5 fL (81-99); MONOCYTES # (AUTO) 0.9 (0.2-0.8); MONOCYTES % 6.3 % (4.4-11.3); NEUTROPHILS # (AUTO) 11.3 (2.1-6.9); NEUTROPHILS % 76.9 % (38.7-80.0); PLATELET COUNT 238 x10e3/uL (140-360); RED BLOOD COUNT 2.84 x10e6/uL (3.6-5.1); RED CELL DISTRIBUTION WIDTH 14.6 % (11.7-14.4)
[2024-05-13 06:25] LABS: ALBUMIN 2.4 g/dL (3.5-5.0); ALBUMIN/GLOBULIN RATIO 0.8 (0.8-2.0); ANION GAP 14.6 mmol/L (8-16); BILIRUBIN,TOTAL 0.3 mg/dL (0.2-1.2); CREATININE, SERUM 1.22 mg/dL (0.57-1.11); POTASSIUM 3.6 mmol/L (3.5-5.1); TOTAL PROTEIN 5.4 g/dL (6.5-8.1)
[2024-05-13] MEDS: SODIUM CHLORIDE 0.9% 500ML 500 ML IV ONE (08:24)
[2024-05-13] MEDS: ACETAMINOPHEN 325 MG TAB PO PRN (11:55)
[2024-05-13] MEDS: SODIUM CHLORIDE 0.9% 500ML 500 ML ONE ×2 (12:31→12:32)
[2024-05-13] MEDS ORDERED: ARTIFICIAL TEARS (OPTH) 15 ML BTL OU PRN (16:45)
[2024-05-14] VITALS (11 sets, daily range): BP systolic 118–171; BP diastolic 77–98; PULSE 86–117; RESP 16–20; TEMP 97.2–98.8; O2SAT 95–100
[2024-05-14 05:44] LABS: BASOPHILS # (AUTO) 0.1 (0.0-0.1); BASOPHILS % 0.6 % (0.0-1.0); EOSINOPHILS # (AUTO) 0.2 (0.0-0.4); EOSINOPHILS % 1.3 % (0.0-6.0); HEMATOCRIT 26.8 % (34.2-44.1); HEMOGLOBIN 8.6 g/dL (12.0-16.0); LYMPHOCYTES % 14.6 % (18.0-39.1); MEAN CORPUSCULAR HEMOGLOBIN 27.3 pg (28-32); MEAN CORPUSCULAR HGB CONC 32.1 g/dL (31-35); MEAN CORPUSCULAR VOLUME 85.1 fL (81-99); MONOCYTES # (AUTO) 0.7 (0.2-0.8); MONOCYTES % 4.9 % (4.4-11.3); NEUTROPHILS # (AUTO) 10.7 (2.1-6.9); RED BLOOD COUNT 3.15 x10e6/uL (3.6-5.1); WHITE BLOOD COUNT 13.93 x10e3/uL (4.8-10.8)
[2024-05-14 05:47] LABS: PLATELET COUNT 177 x10e3/uL (140-360)
[2024-05-14 05:59] LABS: ALBUMIN 2.6 g/dL (3.5-5.0); ALBUMIN/GLOBULIN RATIO 0.7 (0.8-2.0); ANION GAP 16.6 mmol/L (8-16); BILIRUBIN,TOTAL 0.4 mg/dL (0.2-1.2); CALCIUM 8.4 mg/dL (8.4-10.2); CREATININE, SERUM 0.97 mg/dL (0.57-1.11); POTASSIUM 3.6 mmol/L (3.5-5.1); TOTAL PROTEIN 6.1 g/dL (6.5-8.1)
[2024-05-14 06:25] LABS: ABG PH 7.27 (7.35-7.45)
[2024-05-14 11:35] LABS: EOSINOPHILS % (MANUAL) 1 % (0-7); LYMPHOCYTES % (MANUAL) 16 % (19-48); MONOCYTES % (MANUAL) 4 % (3.4-9.0); NEUTROPHILS % (MANUAL) 79 % (40-74)
[2024-05-14 11:36] LABS: PLATELET ESTIMATE ADEQUATE; PLATELET MORPHOLOGY COMMENT NORMAL
[2024-05-15] VITALS (11 sets, daily range): BP systolic 114–137; BP diastolic 72–98; PULSE 83–110; RESP 16–20; TEMP 97.7–98.6; O2SAT 90–100
[2024-05-15 06:22] LABS: BASOPHILS # (AUTO) 0.1 (0.0-0.1); BASOPHILS % 0.6 % (0.0-1.0); EOSINOPHILS # (AUTO) 0.2 (0.0-0.4); EOSINOPHILS % 1.3 % (0.0-6.0); HEMATOCRIT 26.3 % (34.2-44.1); HEMOGLOBIN 8.4 g/dL (12.0-16.0); LYMPHOCYTES # (AUTO) 1.9 (1.0-3.2); LYMPHOCYTES % 15.7 % (18.0-39.1); MEAN CORPUSCULAR HEMOGLOBIN 26.8 pg (28-32); MEAN CORPUSCULAR HGB CONC 31.9 g/dL (31-35); MONOCYTES # (AUTO) 0.7 (0.2-0.8); NEUTROPHILS # (AUTO) 8.8 (2.1-6.9); NEUTROPHILS % 74.1 % (38.7-80.0); PLATELET COUNT 302 x10e3/uL (140-360); RED BLOOD COUNT 3.13 x10e6/uL (3.6-5.1); RED CELL DISTRIBUTION WIDTH 15.4 % (11.7-14.4); WHITE BLOOD COUNT 11.81 x10e3/uL (4.8-10.8)
[2024-05-15 06:50] LABS: ANION GAP 13.3 mmol/L (8-16); CALCIUM 8.4 mg/dL (8.4-10.2); CREATININE, SERUM 0.82 mg/dL (0.57-1.11)
[2024-05-15 06:53] LABS: POTASSIUM 3.3 mmol/L (3.5-5.1)
[2024-05-15] MEDS: LOPERAMIDE HCL 2 MG CAP PO PRN (15:02)
[2024-05-15] MEDS: BENZONATATE 100 MG CAP PO PRN (15:02)
[2024-05-15] MEDS: POTASSIUM CHLORIDE 20 MEQ TAB CR PO STA (16:22)
[2024-05-15] MEDS: HYDROCODONE/APAP 5MG-325MG TAB PO PRN (18:28)
[2024-05-15] MEDS: VANCOMYCIN HCL 125 MG CAPSULE PO SCH (23:52)
[2024-05-16 04:00] VITALS: BP 122/77; PULSE 88; RESP 20; TEMP 97.9; O2SAT 95
[2024-05-16 05:42] LABS: BASOPHILS # (AUTO) 0.1 (0.0-0.1); BASOPHILS % 0.7 % (0.0-1.0); EOSINOPHILS # (AUTO) 0.3 (0.0-0.4); EOSINOPHILS % 2.7 % (0.0-6.0); HEMATOCRIT 24.9 % (34.2-44.1); LYMPHOCYTES # (AUTO) 2.6 (1.0-3.2); LYMPHOCYTES % 25.7 % (18.0-39.1); MEAN CORPUSCULAR HEMOGLOBIN 26.7 pg (28-32); MEAN CORPUSCULAR HGB CONC 30.9 g/dL (31-35); MEAN CORPUSCULAR VOLUME 86.5 fL (81-99); MONOCYTES # (AUTO) 0.8 (0.2-0.8); MONOCYTES % 7.6 % (4.4-11.3); NEUTROPHILS # (AUTO) 6.2 (2.1-6.9); NEUTROPHILS % 60.5 % (38.7-80.0); PLATELET COUNT 290 x10e3/uL (140-360); RED BLOOD COUNT 2.88 x10e6/uL (3.6-5.1); RED CELL DISTRIBUTION WIDTH 15.8 % (11.7-14.4); WHITE BLOOD COUNT 10.15 x10e3/uL (4.8-10.8)
[2024-05-16 05:54] LABS: HEMOGLOBIN 7.7 g/dL (12.0-16.0)
[2024-05-16 06:06] LABS: ANION GAP 14.1 mmol/L (8-16); CALCIUM 8.3 mg/dL (8.4-10.2); CREATININE, SERUM 1.27 mg/dL (0.57-1.11); POTASSIUM 4.1 mmol/L (3.5-5.1)
[2024-05-16 07:38] LABS: EOSINOPHILS % (MANUAL) 2 % (0-7); LYMPHOCYTES % (MANUAL) 24 % (19-48); MONOCYTES % (MANUAL) 4 % (3.4-9.0); NEUTROPHILS % (MANUAL) 70 % (40-74)
[2024-05-16 07:39] LABS: PLATELET ESTIMATE ADEQUATE; PLATELET MORPHOLOGY COMMENT NORMAL; RBC MORPHOLOGY COMMENT NORMAL
[2024-05-16 08:15] VITALS: BP 93/57; PULSE 81; RESP 16; TEMP 97.2; O2SAT 96
[2024-05-16] MEDS ORDERED: COZAAR25 MG PO (10:33)
[2024-05-16 11:18] VITALS: BP 99/57; PULSE 97; RESP 19; TEMP 97.9; O2SAT 99
[2024-05-16 11:24] VITALS: BP 99/57; PULSE 97; RESP 19; TEMP 97.9; O2SAT 99
[2024-05-29 05:59] LABS: ABG HCO3 17 mmol/L (22-26); ABG PCO2 36 mmHg (35-45); ABG PH 7.29 (7.35-7.45); ABG PO2 82 mmHg (80-105); ABG TCO2 18
[2024-05-29 05:59] LABS: ABG HCO3 17 mmol/L (22-26); ABG PCO2 27 mmHg (35-45); ABG PO2 136 mmHg (80-105); ABG TCO2 18
[2024-05-29 05:59] LABS: ABG PH 7.11 (7.35-7.45)
[2024-05-29] MEDS ORDERED: TOPROL XL50 MG PO (13:05)
[2024-05-29] MEDS ORDERED: TIZANIDINE HCL4 MG PO (13:05)
[2024-05-29] MEDS ORDERED: ACETAMINOPHEN325 M1 PO (13:05)
[2024-05-29] MEDS ORDERED: ASPIRIN EC81 MG PO (13:05)
[2024-05-29] MEDS ORDERED: ELIQUIS2.5 MG PO (13:05)
[2024-05-29] MEDS ORDERED: MIDODRINE HCL2.5 MG PO (13:05)
[2024-05-29] MEDS ORDERED: FUROSEMIDE20 MG PO (13:05)
[2024-05-29] MEDS ORDERED: DIFLUCAN100 MG PO (13:05)
== END 2024-05-16 13:30 | DRG 682 ==
LOC: ER 17:47 → ERHOLD 05-05 00:20 → MED/SURG 05-05 02:17 → ICU 05-08 10:55 → MED/SURG2 05-11 10:18
PROVIDERS: ADMIT Internal Medicine; ATTEND Internal Medicine
PROC: 4A033R1 Measurement of Arterial Saturation, Peripheral, Percutaneous Approach (ICD-10-PCS; 2024-05-07)
PROC: 4A043R1 Measurement of Venous Saturation, Peripheral, Percutaneous Approach (ICD-10-PCS; 2024-05-07)
PROC: 05HM33Z Insertion of Infusion Device into Right Internal Jugular Vein, Percutaneous Approach (ICD-10-PCS; principal; 2024-05-08)
PROC: B543ZZA Ultrasonography of Right Jugular Veins, Guidance (ICD-10-PCS; 2024-05-08)
PROC: 0BH17EZ Insertion of Endotracheal Airway into Trachea, Via Natural or Artificial Opening (ICD-10-PCS; 2024-05-08)
PROC: 5A1935Z Respiratory Ventilation, Less than 24 Consecutive Hours (ICD-10-PCS; 2024-05-08)
PROC: 5A09357 Assistance with Respiratory Ventilation, Less than 24 Consecutive Hours, Continuous Positive Airway Pressure (ICD-10-PCS; 2024-05-08)
PROC: 4A033R1 Measurement of Arterial Saturation, Peripheral, Percutaneous Approach (ICD-10-PCS; 2024-05-08)
PROC: 4A033R1 Measurement of Arterial Saturation, Peripheral, Percutaneous Approach (ICD-10-PCS; 2024-05-08)
PROC: 4A033R1 Measurement of Arterial Saturation, Peripheral, Percutaneous Approach (ICD-10-PCS; 2024-05-09)
PROC: 4A033R1 Measurement of Arterial Saturation, Peripheral, Percutaneous Approach (ICD-10-PCS; 2024-05-09)
DX: N17.9 Acute kidney failure, unspecified (principal); A41.81 Sepsis due to Enterococcus; G93.41 Metabolic encephalopathy; I50.33 Acute on chronic diastolic (congestive) heart failure; J96.01 Acute respiratory failure with hypoxia; R65.21 Severe sepsis with septic shock; J18.9 Pneumonia, unspecified organism; A41.89 Other specified sepsis; N39.0 Urinary tract infection, site not specified; E87.1 Hypo-osmolality and hyponatremia; A04.72 Enterocolitis due to Clostridium difficile, not specified as recurrent; I13.0 Hypertensive heart and chronic kidney disease with heart failure and stage 1 through stage 4 chronic kidney disease, or unspecified chronic kidney disease; E87.21 Acute metabolic acidosis; K56.699 Other intestinal obstruction unspecified as to partial versus complete obstruction; N17.0 Acute kidney failure with tubular necrosis; E87.6 Hypokalemia; I25.10 Atherosclerotic heart disease of native coronary artery without angina pectoris; Z95.1 Presence of aortocoronary bypass graft; F41.9 Anxiety disorder, unspecified; K44.9 Diaphragmatic hernia without obstruction or gangrene; I48.91 Unspecified atrial fibrillation; I95.9 Hypotension, unspecified; K21.9 Gastro-esophageal reflux disease without esophagitis; N18.9 Chronic kidney disease, unspecified; D64.9 Anemia, unspecified; E11.22 Type 2 diabetes mellitus with diabetic chronic kidney disease; R53.81 Other malaise; Z68.28 Body mass index [BMI] 28.0-28.9, adult; Z71.3 Dietary counseling and surveillance; Z91.81 History of falling; Z85.3 Personal history of malignant neoplasm of breast; Z79.899 Other long term (current) drug therapy; Z79.01 Long term (current) use of anticoagulants; Z79.84 Long term (current) use of oral hypoglycemic drugs; Z92.3 Personal history of irradiation; Z92.21 Personal history of antineoplastic chemotherapy
CPT/HCPCS: 36415; 36600; 70450; 71045; 71250; 74018; 74176; 80048; 80053; 80202; 80320; 80329; 81001; 82550; 82570; 82607; 82805; 82948; 83540; 83605; 83630; 83690; 83880; 83993; 84156; 84466; 84484; 85025; 86140; 87040; 87045; 87086; 93005; 93306; 94002; 94003; 94640; 94660; 94799; 96361; 99252; 99285; J0330; J0692; J0696; J1756; J1940; J2250; J2405; J2765; J2919; J3420; J3480; J7030; J7040; J7050

== ENCOUNTER 2024-05-20 01:39 | Inpatient (IN) | payer BC, MEDICARE ==
[2024-05-20] VITALS (13 sets, daily range): BP systolic 93–124; BP diastolic 51–90; PULSE 73–100; RESP 20–22; TEMP 97.6–98.3; O2SAT 95–100
[~2024-05-20] VITALS: Ht 193 cm; Wt 72.6 kg
[~2024-05-20 01:39] MED LIST changes: +COZAAR25 MG PO
[2024-05-20] MEDS: SODIUM CHLORIDE 0.9% 1000ML 1,000 ML IV STA (02:20)
[2024-05-20] MEDS: ACETAMINOPHEN 325 MG TAB PO STA (02:20)
[2024-05-20 02:39] LABS: BASOPHILS # (AUTO) 0.1 (0.0-0.1); BASOPHILS % 0.5 % (0.0-1.0); EOSINOPHILS # (AUTO) 0.2 (0.0-0.4); EOSINOPHILS % 1.1 % (0.0-6.0); HEMATOCRIT 25.4 % (34.2-44.1); HEMOGLOBIN 7.9 g/dL (12.0-16.0); LYMPHOCYTES % 13.9 % (18.0-39.1); MEAN CORPUSCULAR HEMOGLOBIN 26.7 pg (28-32); MEAN CORPUSCULAR HGB CONC 31.1 g/dL (31-35); MEAN CORPUSCULAR VOLUME 85.8 fL (81-99); MONOCYTES # (AUTO) 0.6 (0.2-0.8); NEUTROPHILS # (AUTO) 11.6 (2.1-6.9); NEUTROPHILS % 79.4 % (38.7-80.0); PLATELET COUNT 357 x10e3/uL (140-360); RED BLOOD COUNT 2.96 x10e6/uL (3.6-5.1); RED CELL DISTRIBUTION WIDTH 16.8 % (11.7-14.4); WHITE BLOOD COUNT 14.64 x10e3/uL (4.8-10.8)
[2024-05-20 02:58] LABS: ALBUMIN 2.9 g/dL (3.5-5.0); ALBUMIN/GLOBULIN RATIO 0.7 (0.8-2.0); CALCIUM 8.1 mg/dL (8.4-10.2); CREATININE, SERUM 1.44 mg/dL (0.57-1.11); TOTAL PROTEIN 6.9 g/dL (6.5-8.1)
[2024-05-20 03:02] LABS: CORONAVIRUS COVID-19 AG NEGATIVE (NEGATIVE); INFLUENZA A AG NEGATIVE (NEGATIVE); INFLUENZA B AG NEGATIVE (NEGATIVE)
[2024-05-20 03:05] LABS: TROPONIN I 0.002 ng/mL (0-0.300)
[2024-05-20] MEDS ORDERED: SODIUM CHLORIDE FLUSH 10 ML SYR INJ PRN (04:00)
[2024-05-20] MEDS: VENLAFAXINE HCL 75 MG TAB PO SCH (14:27)
[2024-05-20] MEDS: ENOXAPARIN SOD INJ 40 MG/0.4 ML SYR SC SCH (17:46)
[2024-05-20] MEDS: HYDROCODONE/APAP 5MG-325MG TAB PO PRN (18:52)
[2024-05-20] MEDS: ALBUTEROL/IPRATROPIUM 3 ML NEB NEB SCH (19:00)
[2024-05-20 19:13] LABS: CLARITY,URINE HAZY (CLEAR); COLOR,URINE YELLOW (YELLOW); GLUCOSE, URINE NEGATIVE (NEGATIVE); KETONES,URINE TRACE (NEGATIVE); LEUKOCYTE ESTERASE ,URINE SMALL (NEGATIVE); NITRITE,URINE NEGATIVE (NEGATIVE); PH,URINE 5.5 (5 - 7); PROTEIN,URINE DIPSTICK 2+ (NEGATIVE)
[2024-05-20 19:14] LABS: BILIRUBIN,URINE SMALL (NEGATIVE); EPITHELIAL CELLS,URINE MODERATE /LPF; RBC,URINE 0-5 /HPF (0-5); TRANSITIONAL EPI CELLS,URINE FEW; URINE UROBILINOGEN 0.2 mg/dL (0.2 - 1); WBC,URINE (MAN) >50 /HPF (0-5)
[2024-05-20 19:15] LABS: YEAST,URINE MANY
[2024-05-20] MEDS: ATORVASTATIN 40 MG TAB PO SCH (20:59)
[2024-05-20] MEDS: METOPROLOL SUCCINATE 50 MG TAB XL PO SCH (20:59)
[2024-05-20] MEDS: TIZANIDINE HCL 4 MG TAB PO SCH (20:59)
[2024-05-21] VITALS (11 sets, daily range): BP systolic 85–122; BP diastolic 51–83; PULSE 66–114; RESP 16–20; TEMP 97.1–98.4; O2SAT 94–100
[2024-05-21] MEDS: VANCOMYCIN 250MG/5ML ORAL SOLN PO SCH (00:10)
[2024-05-21 05:42] LABS: BASOPHILS # (AUTO) 0.1 (0.0-0.1); BASOPHILS % 0.8 % (0.0-1.0); EOSINOPHILS # (AUTO) 0.2 (0.0-0.4); EOSINOPHILS % 2.2 % (0.0-6.0); LYMPHOCYTES # (AUTO) 1.3 (1.0-3.2); LYMPHOCYTES % 12.9 % (18.0-39.1); MEAN CORPUSCULAR HEMOGLOBIN 27.1 pg (28-32); MEAN CORPUSCULAR HGB CONC 30.8 g/dL (31-35); MONOCYTES # (AUTO) 0.6 (0.2-0.8); MONOCYTES % 6.1 % (4.4-11.3); NEUTROPHILS # (AUTO) 7.7 (2.1-6.9); PLATELET COUNT 297 x10e3/uL (140-360); RED BLOOD COUNT 2.58 x10e6/uL (3.6-5.1); RED CELL DISTRIBUTION WIDTH 17.2 % (11.7-14.4); WHITE BLOOD COUNT 10.01 x10e3/uL (4.8-10.8)
[2024-05-21 05:43] LABS: HEMATOCRIT 22.7 % (34.2-44.1)
[2024-05-21 05:55] LABS: ALBUMIN 2.4 g/dL (3.5-5.0); ALBUMIN/GLOBULIN RATIO 0.7 (0.8-2.0); ANION GAP 12.8 mmol/L (8-16); BILIRUBIN,TOTAL 0.6 mg/dL (0.2-1.2); CALCIUM 7.7 mg/dL (8.4-10.2); CREATININE, SERUM 1.34 mg/dL (0.57-1.11); POTASSIUM 3.8 mmol/L (3.5-5.1)
[2024-05-21 06:02] LABS: TROPONIN I 0.006 ng/mL (0-0.300)
[2024-05-21] MEDS: PANTOPRAZOLE SOD 40 MG TABEC PO SCH (08:08)
[2024-05-21] MEDS: AMLODIPINE BESYLATE 10 MG TAB PO SCH (08:08)
[2024-05-21] MEDS: METFORMIN HCL 500 MG TAB PO SCH (08:08)
[2024-05-21] MEDS: VENLAFAXINE HCL 75 MG TAB PO SCH (08:08)
[2024-05-21] MEDS: SERTRALINE HCL 50 MG TAB PO SCH (08:08)
[2024-05-21] MEDS: VANCOMYCIN HCL 125 MG CAPSULE PO SCH (12:21)
[2024-05-21] MEDS: LACTATED RINGER'S 1,000 ML IV SCH (14:17)
[2024-05-22] VITALS (14 sets, daily range): BP systolic 85–117; BP diastolic 53–74; PULSE 58–96; RESP 16–23; TEMP 97.1–98.2; O2SAT 94–100
[2024-05-22 06:13] LABS: BASOPHILS # (AUTO) 0.1 (0.0-0.1); BASOPHILS % 0.7 % (0.0-1.0); EOSINOPHILS # (AUTO) 0.2 (0.0-0.4); HEMATOCRIT 21.8 % (34.2-44.1); LYMPHOCYTES # (AUTO) 1.2 (1.0-3.2); LYMPHOCYTES % 12.6 % (18.0-39.1); MEAN CORPUSCULAR HEMOGLOBIN 27.9 pg (28-32); MEAN CORPUSCULAR HGB CONC 31.2 g/dL (31-35); MEAN CORPUSCULAR VOLUME 89.3 fL (81-99); MONOCYTES # (AUTO) 0.5 (0.2-0.8); MONOCYTES % 5.5 % (4.4-11.3); NEUTROPHILS # (AUTO) 7.1 (2.1-6.9); NEUTROPHILS % 77.8 % (38.7-80.0); PLATELET COUNT 296 x10e3/uL (140-360); RED BLOOD COUNT 2.44 x10e6/uL (3.6-5.1); RED CELL DISTRIBUTION WIDTH 17.6 % (11.7-14.4); RETICULOCYTE % 6.3 % (0.8-2.2); WHITE BLOOD COUNT 9.13 x10e3/uL (4.8-10.8)
[2024-05-22 06:14] LABS: HEMOGLOBIN 6.8 g/dL (12.0-16.0)
[2024-05-22 06:29] LABS: ALBUMIN 2.3 g/dL (3.5-5.0); ALBUMIN/GLOBULIN RATIO 0.7 (0.8-2.0); BILIRUBIN,TOTAL 0.7 mg/dL (0.2-1.2); CALCIUM 7.4 mg/dL (8.4-10.2); CREATININE, SERUM 1.56 mg/dL (0.57-1.11); TOTAL PROTEIN 5.6 g/dL (6.5-8.1)
[2024-05-22] MEDS ORDERED: ALBUTEROL/IPRATROPIUM 3 ML NEB NEB PRN (08:45)
[2024-05-22] MEDS: FUROSEMIDE INJ 10 MG/ML 4 ML VIAL IV ONE (11:13)
[2024-05-22] MEDS ORDERED: FUROSEMIDE INJ 10 MG/ML 2 ML VIAL IV PRN (12:30)
[2024-05-22] MEDS: SODIUM CHLORIDE 0.9% 250ML 250 ML ONE (18:11)
[2024-05-22] MEDS: SODIUM CHLORIDE 0.9% 250ML 250 ML IV ONE (18:12)
[2024-05-23] VITALS (10 sets, daily range): BP systolic 109–152; BP diastolic 48–98; PULSE 84–101; RESP 18–22; TEMP 97.4–99.1; O2SAT 93–100
[2024-05-23 05:42] LABS: BASOPHILS # (AUTO) 0.2 (0.0-0.1); BASOPHILS % 1.2 % (0.0-1.0); EOSINOPHILS # (AUTO) 0.3 (0.0-0.4); EOSINOPHILS % 1.8 % (0.0-6.0); HEMOGLOBIN 10.3 g/dL (12.0-16.0); LYMPHOCYTES # (AUTO) 1.6 (1.0-3.2); LYMPHOCYTES % 11.7 % (18.0-39.1); MEAN CORPUSCULAR HEMOGLOBIN 28.3 pg (28-32); MEAN CORPUSCULAR HGB CONC 31.2 g/dL (31-35); MEAN CORPUSCULAR VOLUME 90.7 fL (81-99); MONOCYTES # (AUTO) 0.7 (0.2-0.8); MONOCYTES % 5.4 % (4.4-11.3); NEUTROPHILS # (AUTO) 10.7 (2.1-6.9); NEUTROPHILS % 78.7 % (38.7-80.0); PLATELET COUNT 309 x10e3/uL (140-360); RED BLOOD COUNT 3.64 x10e6/uL (3.6-5.1); RED CELL DISTRIBUTION WIDTH 18.3 % (11.7-14.4); WHITE BLOOD COUNT 13.64 x10e3/uL (4.8-10.8)
[2024-05-23 06:12] LABS: ALBUMIN 2.9 g/dL (3.5-5.0); ALBUMIN/GLOBULIN RATIO 0.7 (0.8-2.0); ANION GAP 18.6 mmol/L (8-16); BILIRUBIN,TOTAL 1.2 mg/dL (0.2-1.2); CALCIUM 8.1 mg/dL (8.4-10.2); CREATININE, SERUM 1.59 mg/dL (0.57-1.11); POTASSIUM 3.6 mmol/L (3.5-5.1); TOTAL PROTEIN 7.3 g/dL (6.5-8.1)
[2024-05-23] MEDS: IRON SUCROSE 100 MG in SODIUM CHLORIDE 0.9% 100 ML IV SCH (10:54)
[2024-05-23] MEDS: CARVEDILOL 12.5 MG TAB PO SCH (11:14)
[2024-05-23] MEDS: BENZONATATE 100 MG CAP PO PRN (13:23)
[2024-05-23 17:56] LABS: ABG HCO3 20 mmol/L (22-26); ABG PCO2 34 mmHg (35-45); ABG PH 7.38 (7.35-7.45); ABG PO2 58 mmHg (80-105)
[2024-05-23 17:57] LABS: ABG TCO2 21
[2024-05-23] MEDS: SODIUM BICARBONATE 650 MG TAB PO ONE (17:59)
[2024-05-23] MEDS: FUROSEMIDE INJ 10 MG/ML 2 ML VIAL IV ONE (18:01)
[2024-05-24] VITALS (18 sets, daily range): BP systolic 80–144; BP diastolic 49–90; PULSE 70–93; RESP 16–22; TEMP 97.1–98.9; O2SAT 91–99
[2024-05-24] MEDS: FUROSEMIDE 20 MG TAB PO SCH (05:39)
[2024-05-24 07:50] LABS: BASOPHILS # (AUTO) 0.1 (0.0-0.1); EOSINOPHILS # (AUTO) 0.2 (0.0-0.4); EOSINOPHILS % 2.4 % (0.0-6.0); HEMOGLOBIN 9.2 g/dL (12.0-16.0); LYMPHOCYTES # (AUTO) 1.3 (1.0-3.2); LYMPHOCYTES % 14.2 % (18.0-39.1); MEAN CORPUSCULAR HEMOGLOBIN 28.1 pg (28-32); MEAN CORPUSCULAR HGB CONC 31.7 g/dL (31-35); MEAN CORPUSCULAR VOLUME 88.7 fL (81-99); MONOCYTES # (AUTO) 0.7 (0.2-0.8); MONOCYTES % 8.1 % (4.4-11.3); NEUTROPHILS # (AUTO) 6.8 (2.1-6.9); NEUTROPHILS % 73.5 % (38.7-80.0); PLATELET COUNT 272 x10e3/uL (140-360); RED BLOOD COUNT 3.27 x10e6/uL (3.6-5.1); WHITE BLOOD COUNT 9.17 x10e3/uL (4.8-10.8)
[2024-05-24 08:15] LABS: ALBUMIN 2.4 g/dL (3.5-5.0); ALBUMIN/GLOBULIN RATIO 0.6 (0.8-2.0); ANION GAP 13.2 mmol/L (8-16); BILIRUBIN,TOTAL 0.9 mg/dL (0.2-1.2); CALCIUM 7.6 mg/dL (8.4-10.2); CREATININE, SERUM 1.43 mg/dL (0.57-1.11); TOTAL PROTEIN 6.2 g/dL (6.5-8.1)
[2024-05-24 08:17] LABS: POTASSIUM 3.2 mmol/L (3.5-5.1)
[2024-05-24] MEDS: AMLODIPINE BESYLATE 5 MG TAB PO SCH (09:40)
[2024-05-24] MEDS: ASPIRIN 81 MG ENTERIC COATED PO SCH (09:40)
[2024-05-24] MEDS: SODIUM BICARBONATE 650 MG TAB PO SCH (09:40)
[2024-05-24] MEDS: MAGNESIUM SULFATE 2GM/50ML 50 ML IV ONE (14:02)
[2024-05-24] MEDS: SODIUM CHLORIDE 0.9% 250ML 250 ML ONE (14:02)
[2024-05-24] MEDS: POTASSIUM CHLORIDE 10MEQ EA PO ONE (14:03)
[2024-05-24] MEDS: FLUCONAZOLE 100 MG TAB PO SCH (14:03)
[2024-05-24] MEDS: SODIUM CHLORIDE 0.9% 250ML 250 ML IV STA (19:19)
[2024-05-24] MEDS: SODIUM CHLORIDE 0.9% 250ML 250 ML IV ONE ×2 (20:30→23:01)
[2024-05-24] MEDS: ACETAMINOPHEN 325 MG TAB PO PRN (21:51)
[2024-05-24] MEDS: MIDODRINE 2.5 MG TAB PO SCH (21:51)
[2024-05-25] VITALS (12 sets, daily range): BP systolic 97–128; BP diastolic 52–82; PULSE 62–107; RESP 15–22; TEMP 97.5–98.2; O2SAT 93–100
[2024-05-25 06:30] LABS: HEMATOCRIT 25.5 % (34.2-44.1); HEMOGLOBIN 8.1 g/dL (12.0-16.0); MEAN CORPUSCULAR VOLUME 89.8 fL (81-99); RED BLOOD COUNT 2.84 x10e6/uL (3.6-5.1); WHITE BLOOD COUNT 7.43 x10e3/uL (4.8-10.8)
[2024-05-25 06:31] LABS: BASOPHILS # (AUTO) 0.1 (0.0-0.1); BASOPHILS % 0.9 % (0.0-1.0); EOSINOPHILS # (AUTO) 0.2 (0.0-0.4); EOSINOPHILS % 3.2 % (0.0-6.0); LYMPHOCYTES # (AUTO) 1.2 (1.0-3.2); LYMPHOCYTES % 16.7 % (18.0-39.1); MEAN CORPUSCULAR HEMOGLOBIN 28.5 pg (28-32); MEAN CORPUSCULAR HGB CONC 31.8 g/dL (31-35); MONOCYTES # (AUTO) 0.6 (0.2-0.8); MONOCYTES % 7.7 % (4.4-11.3); NEUTROPHILS # (AUTO) 5.3 (2.1-6.9); NEUTROPHILS % 70.7 % (38.7-80.0); PLATELET COUNT 266 x10e3/uL (140-360); RED CELL DISTRIBUTION WIDTH 19.6 % (11.7-14.4)
[2024-05-25 08:26] LABS: ANION GAP 13.6 mmol/L (8-16); BLOOD UREA NITROGEN 10.25 mg/dL (7-26); CREATININE, SERUM 1.56 mg/dL (0.57-1.11); POTASSIUM 3.6 mmol/L (3.5-5.1)
[2024-05-25 08:27] LABS: BILIRUBIN,TOTAL 0.6 mg/dL (0.2-1.2); CALCIUM 7.7 mg/dL (8.4-10.2); MAGNESIUM 2.2 MG/DL (1.3-2.1); TOTAL PROTEIN 5.9 g/dL (6.5-8.1)
[2024-05-25] MEDS: CARVEDILOL 12.5 MG TAB PO SCH (08:33)
[2024-05-25 08:57] LABS: ALBUMIN 2.3 g/dL (3.5-5.0); ALBUMIN/GLOBULIN RATIO 0.6 (0.8-2.0)
[2024-05-25 15:09] LABS: SPE ALPHA 1 GLOBULIN 0.4; SPE ALPHA 2 GLOBULIN 0.7; SPE GAMMA GLOBULIN 1.6
[2024-05-25 15:10] LABS: A/G RATIO 0.8; GLOBULIN TOTAL 3.7; KAPPA/LAMBDA RATIO 1.5; LAMBDA LIGHT CHAINS 64.1; SPE TOTAL PROTEIN 6.5
[2024-05-25] MEDS: EPOETIN ALFA-EPBX 10,000 UNIT/ML VIAL SC SCH (20:39)
[2024-05-26] VITALS (9 sets, daily range): BP systolic 104–128; BP diastolic 62–79; PULSE 75–94; RESP 15–22; TEMP 97.5–99.3; O2SAT 96–100
[2024-05-26 08:51] LABS: BASOPHILS # (AUTO) 0.1 (0.0-0.1); BASOPHILS % 0.9 % (0.0-1.0); EOSINOPHILS # (AUTO) 0.1 (0.0-0.4); EOSINOPHILS % 1.8 % (0.0-6.0); HEMATOCRIT 25.4 % (34.2-44.1); LYMPHOCYTES # (AUTO) 1.2 (1.0-3.2); LYMPHOCYTES % 16.2 % (18.0-39.1); MEAN CORPUSCULAR HEMOGLOBIN 28.3 pg (28-32); MEAN CORPUSCULAR HGB CONC 31.5 g/dL (31-35); MEAN CORPUSCULAR VOLUME 89.8 fL (81-99); MONOCYTES # (AUTO) 0.5 (0.2-0.8); MONOCYTES % 6.6 % (4.4-11.3); NEUTROPHILS # (AUTO) 5.6 (2.1-6.9); NEUTROPHILS % 73.8 % (38.7-80.0); PLATELET COUNT 269 x10e3/uL (140-360); RED BLOOD COUNT 2.83 x10e6/uL (3.6-5.1); RED CELL DISTRIBUTION WIDTH 20.2 % (11.7-14.4)
[2024-05-26 09:19] LABS: ALBUMIN 2.4 g/dL (3.5-5.0); ALBUMIN/GLOBULIN RATIO 0.7 (0.8-2.0); ANION GAP 13.7 mmol/L (8-16); BILIRUBIN,TOTAL 0.6 mg/dL (0.2-1.2); CALCIUM 8.1 mg/dL (8.4-10.2); CREATININE, SERUM 1.2 mg/dL (0.57-1.11); POTASSIUM 3.7 mmol/L (3.5-5.1)
[2024-05-27] VITALS (10 sets, daily range): BP systolic 115–126; BP diastolic 59–75; PULSE 65–91; RESP 13–20; TEMP 97.5–98.4; O2SAT 96–100
[2024-05-27 06:07] LABS: BASOPHILS # (AUTO) 0.1 (0.0-0.1); EOSINOPHILS # (AUTO) 0.2 (0.0-0.4); EOSINOPHILS % 2.9 % (0.0-6.0); HEMATOCRIT 25.9 % (34.2-44.1); HEMOGLOBIN 8.2 g/dL (12.0-16.0); LYMPHOCYTES # (AUTO) 1.1 (1.0-3.2); LYMPHOCYTES % 17.8 % (18.0-39.1); MEAN CORPUSCULAR HEMOGLOBIN 28.7 pg (28-32); MEAN CORPUSCULAR HGB CONC 31.7 g/dL (31-35); MEAN CORPUSCULAR VOLUME 90.6 fL (81-99); MONOCYTES # (AUTO) 0.5 (0.2-0.8); MONOCYTES % 7.2 % (4.4-11.3); NEUTROPHILS # (AUTO) 4.4 (2.1-6.9); NEUTROPHILS % 70.6 % (38.7-80.0); PLATELET COUNT 259 x10e3/uL (140-360); RED BLOOD COUNT 2.86 x10e6/uL (3.6-5.1); RED CELL DISTRIBUTION WIDTH 20.3 % (11.7-14.4); WHITE BLOOD COUNT 6.25 x10e3/uL (4.8-10.8)
[2024-05-27 06:16] LABS: ANION GAP 13.4 mmol/L (8-16); CREATININE, SERUM 0.93 mg/dL (0.57-1.11)
[2024-05-27 06:49] LABS: POTASSIUM 3.4 mmol/L (3.5-5.1)
[2024-05-27] MEDS: POTASSIUM CHLORIDE 20 MEQ TAB CR PO STA (09:44)
[2024-05-27] MEDS: TIZANIDINE HCL 4 MG TAB PO SCH (09:44)
[2024-05-27] MEDS: APIXABAN 2.5 MG TABLET PO SCH (16:22)
[2024-05-27] MEDS: ONDANSETRON HCL INJ 2MG/ML 2ML 2 MG/ML VIAL IV PRN (18:24)
[2024-05-28] VITALS (8 sets, daily range): BP systolic 117–131; BP diastolic 64–98; PULSE 71–93; RESP 16–20; TEMP 97.9–98.5; O2SAT 92–99
[2024-05-28 05:28] LABS: BASOPHILS # (AUTO) 0.1 (0.0-0.1); BASOPHILS % 0.8 % (0.0-1.0); EOSINOPHILS # (AUTO) 0.2 (0.0-0.4); HEMATOCRIT 26.2 % (34.2-44.1); HEMOGLOBIN 8.4 g/dL (12.0-16.0); LYMPHOCYTES # (AUTO) 0.9 (1.0-3.2); MEAN CORPUSCULAR HEMOGLOBIN 28.6 pg (28-32); MEAN CORPUSCULAR HGB CONC 32.1 g/dL (31-35); MEAN CORPUSCULAR VOLUME 89.1 fL (81-99); MONOCYTES # (AUTO) 0.4 (0.2-0.8); NEUTROPHILS # (AUTO) 4.4 (2.1-6.9); NEUTROPHILS % 73.9 % (38.7-80.0); PLATELET COUNT 250 x10e3/uL (140-360); RED BLOOD COUNT 2.94 x10e6/uL (3.6-5.1); RED CELL DISTRIBUTION WIDTH 20.3 % (11.7-14.4); WHITE BLOOD COUNT 5.99 x10e3/uL (4.8-10.8)
[2024-05-28 05:49] LABS: ANION GAP 13.4 mmol/L (8-16); CALCIUM 8.3 mg/dL (8.4-10.2); CREATININE, SERUM 0.95 mg/dL (0.57-1.11)
[2024-05-28 05:50] LABS: POTASSIUM 3.4 mmol/L (3.5-5.1)
[2024-05-28 06:55] LABS: ABG HCO3 20 mmol/L (22-26); ABG PCO2 34 mmHg (35-45); ABG PH 7.38 (7.35-7.45); ABG PO2 58 mmHg (80-105); ABG TCO2 21
[2024-05-28] MEDS ORDERED: POTASSIUM CHLORIDE 10MEQ EA PO ONE (12:45)
[2024-05-28] MEDS: POTASSIUM CHLORIDE 10MEQ EA PO ONE (15:29)
[2024-05-29] VITALS (9 sets, daily range): BP systolic 115–139; BP diastolic 80–90; PULSE 82–105; RESP 15–18; TEMP 98.2–98.6; O2SAT 94–99
[2024-05-29 05:49] LABS: BASOPHILS % 0.6 % (0.0-1.0); EOSINOPHILS # (AUTO) 0.1 (0.0-0.4); EOSINOPHILS % 1.7 % (0.0-6.0); HEMATOCRIT 27.7 % (34.2-44.1); HEMOGLOBIN 8.9 g/dL (12.0-16.0); LYMPHOCYTES # (AUTO) 0.9 (1.0-3.2); LYMPHOCYTES % 12.4 % (18.0-39.1); MEAN CORPUSCULAR HEMOGLOBIN 28.3 pg (28-32); MEAN CORPUSCULAR HGB CONC 32.1 g/dL (31-35); MEAN CORPUSCULAR VOLUME 88.2 fL (81-99); MONOCYTES # (AUTO) 0.4 (0.2-0.8); MONOCYTES % 5.2 % (4.4-11.3); NEUTROPHILS # (AUTO) 5.7 (2.1-6.9); NEUTROPHILS % 79.7 % (38.7-80.0); PLATELET COUNT 258 x10e3/uL (140-360); RED BLOOD COUNT 3.14 x10e6/uL (3.6-5.1); RED CELL DISTRIBUTION WIDTH 20.2 % (11.7-14.4); WHITE BLOOD COUNT 7.12 x10e3/uL (4.8-10.8)
[2024-05-29 06:22] LABS: ANION GAP 16.5 mmol/L (8-16); CALCIUM 8.7 mg/dL (8.4-10.2); CREATININE, SERUM 0.94 mg/dL (0.57-1.11); POTASSIUM 3.5 mmol/L (3.5-5.1)
[2024-05-29] MEDS: METOPROLOL SUCCINATE 50 MG TAB XL PO SCH (10:42)
[2024-05-29] MEDS ORDERED: TOPROL XL50 MG PO (13:05)
[2024-05-29] MEDS ORDERED: TIZANIDINE HCL4 MG PO (13:05)
[2024-05-29] MEDS ORDERED: ELIQUIS2.5 MG PO (13:05)
[2024-05-29] MEDS ORDERED: DIFLUCAN100 MG PO (13:05)
[2024-05-29] MEDS ORDERED: ASPIRIN EC81 MG PO (13:05)
[2024-05-29] MEDS ORDERED: MIDODRINE HCL2.5 MG PO (13:05)
[2024-05-29] MEDS ORDERED: FUROSEMIDE20 MG PO (13:05)
[2024-05-29] MEDS ORDERED: ACETAMINOPHEN325 M1 PO (13:05)
[2024-05-29] MEDS: MIDODRINE 2.5 MG TAB PO SCH (16:48)
[2024-05-30] MEDS ORDERED: FUROSEMIDE 20 MG TAB PO SCH (09:00)
== END 2024-05-29 18:05 | DRG 640 ==
LOC: ER 01:45 → ERHOLD 03:56 → MED/SURG 04:50
PROVIDERS: ADMIT Internal Medicine; ATTEND Internal Medicine
PROC: 02HV33Z Insertion of Infusion Device into Superior Vena Cava, Percutaneous Approach (ICD-10-PCS; 2024-05-20)
PROC: 30233N1 Transfusion of Nonautologous Red Blood Cells into Peripheral Vein, Percutaneous Approach (ICD-10-PCS; 2024-05-22)
PROC: 4A133R1 Monitoring of Arterial Saturation, Peripheral, Percutaneous Approach (ICD-10-PCS; principal; 2024-05-23)
DX: E87.70 Fluid overload, unspecified (principal); G93.41 Metabolic encephalopathy; I50.33 Acute on chronic diastolic (congestive) heart failure; J96.01 Acute respiratory failure with hypoxia; E44.0 Moderate protein-calorie malnutrition; A04.72 Enterocolitis due to Clostridium difficile, not specified as recurrent; K80.00 Calculus of gallbladder with acute cholecystitis without obstruction; B37.49 Other urogenital candidiasis; N17.9 Acute kidney failure, unspecified; Z68.1 Body mass index [BMI] 19.9 or less, adult; I13.0 Hypertensive heart and chronic kidney disease with heart failure and stage 1 through stage 4 chronic kidney disease, or unspecified chronic kidney disease; E87.20 Acidosis, unspecified; E11.22 Type 2 diabetes mellitus with diabetic chronic kidney disease; I48.0 Paroxysmal atrial fibrillation; Z11.52 Encounter for screening for COVID-19; N18.9 Chronic kidney disease, unspecified; D63.1 Anemia in chronic kidney disease; D50.9 Iron deficiency anemia, unspecified; F03.B0 Unspecified dementia, moderate, without behavioral disturbance, psychotic disturbance, mood disturbance, and anxiety; I25.10 Atherosclerotic heart disease of native coronary artery without angina pectoris; F41.9 Anxiety disorder, unspecified; E87.6 Hypokalemia; E78.00 Pure hypercholesterolemia, unspecified; R53.81 Other malaise; Z79.01 Long term (current) use of anticoagulants; Z79.84 Long term (current) use of oral hypoglycemic drugs; Z95.1 Presence of aortocoronary bypass graft; Z85.3 Personal history of malignant neoplasm of breast; Z88.2 Allergy status to sulfonamides; Z92.21 Personal history of antineoplastic chemotherapy; Z90.49 Acquired absence of other specified parts of digestive tract; Z90.10 Acquired absence of unspecified breast and nipple; Z90.710 Acquired absence of both cervix and uterus; Z82.49 Family history of ischemic heart disease and other diseases of the circulatory system; Z83.3 Family history of diabetes mellitus
CPT/HCPCS: 36415; 36569; 36600; 71045; 80048; 80053; 81001; 82270; 82550; 82607; 82728; 82805; 82948; 83605; 83690; 83735; 83880; 84165; 84443; 84484; 85025; 85045; 86850; 86900; 86920; 87040; 87086; 93005; 94640; 94799; 99252; 99284; J1650; J1756; J1940; J2405; J2543; J3475; J7030; J7050; P9016

== ENCOUNTER 2024-05-31 15:48 | Inpatient (IN) | payer BC, MEDICARE ==
[~2024-05-31] VITALS: Ht 162.6 cm; Wt 72.6 kg
[~2024-05-31 15:48] MED LIST changes: +ACETAMINOPHEN325 M1 PO; +ASPIRIN EC81 MG PO; +DIFLUCAN100 MG PO; +ELIQUIS2.5 MG PO; +FUROSEMIDE20 MG PO; +MIDODRINE HCL2.5 MG PO; +TOPROL XL50 MG PO
[2024-05-31 16:27] LABS: BASOPHILS # (AUTO) 0.1 (0.0-0.1); BASOPHILS % 0.5 % (0.0-1.0); EOSINOPHILS # (AUTO) 0.1 (0.0-0.4); EOSINOPHILS % 0.8 % (0.0-6.0); HEMATOCRIT 31.5 % (34.2-44.1); HEMOGLOBIN 10.1 g/dL (12.0-16.0); LYMPHOCYTES % 20.5 % (18.0-39.1); MEAN CORPUSCULAR HEMOGLOBIN 28.4 pg (28-32); MEAN CORPUSCULAR HGB CONC 32.1 g/dL (31-35); MEAN CORPUSCULAR VOLUME 88.5 fL (81-99); MONOCYTES # (AUTO) 0.8 (0.2-0.8); MONOCYTES % 8.2 % (4.4-11.3); NEUTROPHILS # (AUTO) 6.7 (2.1-6.9); NEUTROPHILS % 69.5 % (38.7-80.0); PLATELET COUNT 311 x10e3/uL (140-360); RED BLOOD COUNT 3.56 x10e6/uL (3.6-5.1); WHITE BLOOD COUNT 9.67 x10e3/uL (4.8-10.8)
[2024-05-31 16:55] LABS: ALBUMIN 3.2 g/dL (3.5-5.0); ALBUMIN/GLOBULIN RATIO 0.7 (0.8-2.0); ANION GAP 22.4 mmol/L (8-16); BILIRUBIN,TOTAL 0.9 mg/dL (0.2-1.2); CALCIUM 8.7 mg/dL (8.4-10.2); CREATININE, SERUM 1.48 mg/dL (0.57-1.11); TOTAL PROTEIN 7.8 g/dL (6.5-8.1)
[2024-05-31 16:56] LABS: POTASSIUM 3.4 mmol/L (3.5-5.1)
[2024-05-31 17:02] LABS: TROPONIN I 0.01 ng/mL (0-0.300)
[2024-05-31] MEDS ORDERED: IOPAMIDOL 370 MG/ML 100 ML INFUS..BTL INJ ONE (17:23)
[2024-05-31 19:18] VITALS: PULSE 102; RESP 20; O2SAT 93
[2024-05-31 20:09] LABS: INR 1.42; PROTHROMBIN TIME 18.1 seconds (11.9-14.5)
[2024-05-31 21:00] VITALS: TEMP 98.9
[2024-05-31] MEDS: ALBUTEROL/IPRATROPIUM 3 ML NEB NEB STA (22:06)
[2024-05-31 23:10] VITALS: PULSE 71; RESP 18
[2024-05-31] MEDS: GUAIFENESIN/CODEINE 5 ML LIQD PO PRN (23:26)
[2024-06-01] VITALS (10 sets, daily range): BP systolic 118–137; BP diastolic 45–92; PULSE 71–110; RESP 18–22; TEMP 97.8–98.8; O2SAT 94–100
[2024-06-01] MEDS ORDERED: DOCUSATE SODIUM 100 MG CAP PO PRN (01:30)
[2024-06-01] MEDS ORDERED: HYDRALAZINE HCL 20 MG/ML VIAL IV PRN (01:30)
[2024-06-01] MEDS ORDERED: MAGNESIUM/ALUMINUM/SIMETHICONE 30 ML UDC PO PRN (01:30)
[2024-06-01] MEDS ORDERED: DEXTROSE 50% SYRINGE 50 ML IV PRN (01:45)
[2024-06-01] MEDS: PREDNISONE 20 MG TAB PO ONE (02:29)
[2024-06-01] MEDS: VENLAFAXINE HCL 75 MG TAB PO SCH (02:29)
[2024-06-01] MEDS: FUROSEMIDE INJ 10 MG/ML 4 ML VIAL IV ONE (02:29)
[2024-06-01 03:28] LABS: CORONAVIRUS COVID-19 AG NEGATIVE (NEGATIVE); INFLUENZA A AG NEGATIVE (NEGATIVE); INFLUENZA B AG NEGATIVE (NEGATIVE)
[2024-06-01 05:29] LABS: BASOPHILS # (AUTO) 0.1 (0.0-0.1); BASOPHILS % 0.5 % (0.0-1.0); EOSINOPHILS # (AUTO) 0.1 (0.0-0.4); EOSINOPHILS % 0.9 % (0.0-6.0); HEMATOCRIT 28.9 % (34.2-44.1); HEMOGLOBIN 9.1 g/dL (12.0-16.0); LYMPHOCYTES # (AUTO) 1.1 (1.0-3.2); LYMPHOCYTES % 10.6 % (18.0-39.1); MEAN CORPUSCULAR HEMOGLOBIN 28.6 pg (28-32); MEAN CORPUSCULAR HGB CONC 31.5 g/dL (31-35); MEAN CORPUSCULAR VOLUME 90.9 fL (81-99); MONOCYTES # (AUTO) 0.4 (0.2-0.8); MONOCYTES % 3.9 % (4.4-11.3); NEUTROPHILS # (AUTO) 8.5 (2.1-6.9); NEUTROPHILS % 83.3 % (38.7-80.0); PLATELET COUNT 288 x10e3/uL (140-360); RED BLOOD COUNT 3.18 x10e6/uL (3.6-5.1); RED CELL DISTRIBUTION WIDTH 20.1 % (11.7-14.4); WHITE BLOOD COUNT 10.14 x10e3/uL (4.8-10.8)
[2024-06-01] MEDS ORDERED: IOPAMIDOL 370 MG/ML 100 ML INFUS..BTL INJ ONE (05:43)
[2024-06-01 06:10] LABS: ALBUMIN 2.8 g/dL (3.5-5.0); ALBUMIN/GLOBULIN RATIO 0.7 (0.8-2.0); ANION GAP 22.3 mmol/L (8-16); BILIRUBIN,TOTAL 0.9 mg/dL (0.2-1.2); CALCIUM 8.3 mg/dL (8.4-10.2); CREATININE, SERUM 1.78 mg/dL (0.57-1.11); TOTAL PROTEIN 6.6 g/dL (6.5-8.1)
[2024-06-01 06:15] LABS: POTASSIUM 3.3 mmol/L (3.5-5.1)
[2024-06-01 06:33] LABS: TROPONIN I 0.019 ng/mL (0-0.300)
[2024-06-01] MEDS: INSULIN REGULAR, HUMAN 100 UNIT/1 ML SQ SCH (07:30)
[2024-06-01] MEDS: BUDESONIDE 0.5MG/2 ML NEB INH SCH (07:47)
[2024-06-01] MEDS: IPRATROPIUM BROMIDE 0.02% 2.5 ML NEB NEB SCH (07:48)
[2024-06-01] MEDS: BENZONATATE 100 MG CAP PO SCH (08:55)
[2024-06-01] MEDS: MULTIVITAMINS/MINERALS TAB PO SCH (08:55)
[2024-06-01] MEDS: PANTOPRAZOLE SOD 40 MG TABEC PO SCH (08:55)
[2024-06-01] MEDS: ASPIRIN 81 MG ENTERIC COATED PO SCH (08:56)
[2024-06-01] MEDS: FUROSEMIDE 20 MG TAB PO SCH (08:56)
[2024-06-01] MEDS: SERTRALINE HCL 50 MG TAB PO SCH (08:56)
[2024-06-01] MEDS: METOPROLOL SUCCINATE 50 MG TAB XL PO SCH (08:57)
[2024-06-01] MEDS ORDERED: POLYETHYLENE GLYCOL 3350 17 GM PACK PO PRN (10:30)
[2024-06-01] MEDS: FLUCONAZOLE 100 MG TAB PO SCH (12:31)
[2024-06-01] MEDS: POTASSIUM CHLORIDE 10MEQ EA PO ONE (12:32)
[2024-06-01] MEDS: ONDANSETRON HCL INJ 2MG/ML 2ML 2 MG/ML VIAL IV PRN (12:33)
[2024-06-01 14:55] LABS: TROPONIN I 0.007 ng/mL (0-0.300)
[2024-06-01] MEDS: APIXABAN 2.5 MG TABLET PO SCH (16:18)
[2024-06-01 18:12] LABS: BODY FLUID APPEARANCE TURBID; BODY FLUID COLOR RED; BODY FLUID TYPE PLEURAL
[2024-06-01 18:13] LABS: RBC,BODY FLUID 59000 cells/uL; WBC,BODY FLUID 2334 cells/uL
[2024-06-01 18:28] LABS: NEUTROPHILS,BODY FLUID 15 %
[2024-06-01 18:29] LABS: LYMPHOCYTES,BODY FLUID 70 %; MONO/MACROPHG,BODY FLUID 5 %; OTHER CELLS,BODY FLUID 10 %; TOTAL CELLS COUNTED (DIFF) 100
[2024-06-01] MEDS: ATORVASTATIN 40 MG TAB PO SCH (20:51)
[2024-06-02] VITALS (11 sets, daily range): BP systolic 91–148; BP diastolic 40–98; PULSE 75–119; RESP 20–22; TEMP 97.8–98.4; O2SAT 94–100
[2024-06-02 06:29] LABS: BASOPHILS % 0.1 % (0.0-1.0); HEMATOCRIT 28.3 % (34.2-44.1); HEMOGLOBIN 9.2 g/dL (12.0-16.0); LYMPHOCYTES # (AUTO) 1.6 (1.0-3.2); LYMPHOCYTES % 10.2 % (18.0-39.1); MEAN CORPUSCULAR HEMOGLOBIN 28.9 pg (28-32); MEAN CORPUSCULAR HGB CONC 32.5 g/dL (31-35); MONOCYTES # (AUTO) 1.2 (0.2-0.8); MONOCYTES % 8.1 % (4.4-11.3); NEUTROPHILS # (AUTO) 12.3 (2.1-6.9); NEUTROPHILS % 80.5 % (38.7-80.0); PLATELET COUNT 315 x10e3/uL (140-360); RED BLOOD COUNT 3.18 x10e6/uL (3.6-5.1); WHITE BLOOD COUNT 15.24 x10e3/uL (4.8-10.8)
[2024-06-02 06:50] LABS: ANION GAP 19.3 mmol/L (8-16); CALCIUM 8.7 mg/dL (8.4-10.2); CREATININE, SERUM 1.78 mg/dL (0.57-1.11); MAGNESIUM 1.6 MG/DL (1.3-2.1)
[2024-06-02 06:55] LABS: POTASSIUM 3.3 mmol/L (3.5-5.1)
[2024-06-02] MEDS: POTASSIUM CHLORIDE 10MEQ EA PO SCH (11:20)
[2024-06-02] MEDS: FUROSEMIDE INJ 10 MG/ML 2 ML VIAL IV ONE (11:21)
[2024-06-02] MEDS: ACETAMINOPHEN 325 MG TAB PO PRN (12:08)
[2024-06-03] VITALS (11 sets, daily range): BP systolic 120–172; BP diastolic 82–103; PULSE 62–107; RESP 18–22; TEMP 97.3–98.7; O2SAT 92–99
[2024-06-03] MEDS: METOCLOPRAMIDE HCL 10 MG/2ML VIAL IV ONE (01:19)
[2024-06-03 05:30] LABS: BASOPHILS # (AUTO) 0.1 (0.0-0.1); BASOPHILS % 0.5 % (0.0-1.0); EOSINOPHILS # (AUTO) 0.3 (0.0-0.4); EOSINOPHILS % 2.5 % (0.0-6.0); HEMATOCRIT 31.7 % (34.2-44.1); HEMOGLOBIN 10.2 g/dL (12.0-16.0); LYMPHOCYTES # (AUTO) 1.4 (1.0-3.2); LYMPHOCYTES % 12.3 % (18.0-39.1); MEAN CORPUSCULAR HEMOGLOBIN 28.9 pg (28-32); MEAN CORPUSCULAR HGB CONC 32.2 g/dL (31-35); MEAN CORPUSCULAR VOLUME 89.8 fL (81-99); MONOCYTES # (AUTO) 0.5 (0.2-0.8); MONOCYTES % 4.2 % (4.4-11.3); NEUTROPHILS # (AUTO) 8.7 (2.1-6.9); NEUTROPHILS % 78.9 % (38.7-80.0); PLATELET COUNT 335 x10e3/uL (140-360); RED BLOOD COUNT 3.53 x10e6/uL (3.6-5.1); RED CELL DISTRIBUTION WIDTH 20.6 % (11.7-14.4); WHITE BLOOD COUNT 11.07 x10e3/uL (4.8-10.8)
[2024-06-03 05:57] LABS: ALBUMIN 2.7 g/dL (3.5-5.0); ALBUMIN/GLOBULIN RATIO 0.6 (0.8-2.0); BILIRUBIN,TOTAL 0.7 mg/dL (0.2-1.2); CALCIUM 8.6 mg/dL (8.4-10.2); CREATININE, SERUM 1.62 mg/dL (0.57-1.11); MAGNESIUM 1.5 MG/DL (1.3-2.1); PHOSPHORUS 1.6 MG/DL (2.3-4.7); TOTAL PROTEIN 6.9 g/dL (6.5-8.1)
[2024-06-03] MEDS: METOCLOPRAMIDE HCL 10 MG/2ML VIAL IV SCH (07:30)
[2024-06-03] MEDS: FUROSEMIDE INJ 10 MG/ML 4 ML VIAL IV ONE (18:19)
[2024-06-04] VITALS (13 sets, daily range): BP systolic 123–151; BP diastolic 71–91; PULSE 70–108; RESP 16–22; TEMP 97.3–98.6; O2SAT 92–98
[2024-06-04 06:30] LABS: BASOPHILS # (AUTO) 0.1 (0.0-0.1); BASOPHILS % 0.7 % (0.0-1.0); EOSINOPHILS # (AUTO) 0.2 (0.0-0.4); HEMATOCRIT 35.7 % (34.2-44.1); HEMOGLOBIN 11.2 g/dL (12.0-16.0); LYMPHOCYTES # (AUTO) 1.2 (1.0-3.2); LYMPHOCYTES % 13.7 % (18.0-39.1); MEAN CORPUSCULAR HEMOGLOBIN 28.7 pg (28-32); MEAN CORPUSCULAR HGB CONC 31.4 g/dL (31-35); MEAN CORPUSCULAR VOLUME 91.5 fL (81-99); MONOCYTES # (AUTO) 0.4 (0.2-0.8); MONOCYTES % 4.3 % (4.4-11.3); NEUTROPHILS # (AUTO) 6.7 (2.1-6.9); NEUTROPHILS % 77.4 % (38.7-80.0); PLATELET COUNT 302 x10e3/uL (140-360); WHITE BLOOD COUNT 8.61 x10e3/uL (4.8-10.8)
[2024-06-04 07:01] LABS: ALBUMIN 2.7 g/dL (3.5-5.0); ALBUMIN/GLOBULIN RATIO 0.7 (0.8-2.0); ANION GAP 18.5 mmol/L (8-16); BILIRUBIN,TOTAL 0.7 mg/dL (0.2-1.2); CALCIUM 8.8 mg/dL (8.4-10.2); CREATININE, SERUM 1.19 mg/dL (0.57-1.11); TOTAL PROTEIN 6.7 g/dL (6.5-8.1)
[2024-06-04 07:05] LABS: POTASSIUM 2.5 mmol/L (3.5-5.1)
[2024-06-04 07:23] LABS: TOTAL PROTEIN,BODY FLUID 2.6 g/dL
[2024-06-04 07:24] LABS: % IRON SATURATION 12 % (15-50); IRON 25 ug/dL (50-170); TOTAL IRON BINDING CAPACITY 213 ug/dL (261-478); TRANSFERRIN 152 mg/dL (180-382)
[2024-06-04] MEDS ORDERED: PANTOPRAZOLE SODIUM 20 MG TABLET.DR PO SCH (07:30)
[2024-06-04 07:53] LABS: FOLATE 5.6 ng/mL (7.0-15.4)
[2024-06-04] MEDS: MAGNESIUM SULFATE 2GM/50ML 50 ML IV SCH (09:29)
[2024-06-04] MEDS: POTASSIUM CHLORIDE 20 MEQ TAB CR PO ONE ×2 (09:31→10:56)
[2024-06-04] MEDS: POTASSIUM CHLORIDE 10MEQ EA PO ONE (16:39)
[2024-06-05] VITALS (12 sets, daily range): BP systolic 115–133; BP diastolic 73–88; PULSE 97–116; RESP 16–20; TEMP 97.4–98.9; O2SAT 94–100
[2024-06-05] MEDS: ALBUTEROL SULF 0.083% NEB SOLN 3 ML NEB NEB PRN (05:51)
[2024-06-05 06:02] LABS: BASOPHILS # (AUTO) 0.1 (0.0-0.1); BASOPHILS % 0.6 % (0.0-1.0); EOSINOPHILS # (AUTO) 0.3 (0.0-0.4); EOSINOPHILS % 2.3 % (0.0-6.0); HEMATOCRIT 34.2 % (34.2-44.1); HEMOGLOBIN 10.7 g/dL (12.0-16.0); LYMPHOCYTES # (AUTO) 1.8 (1.0-3.2); LYMPHOCYTES % 14.9 % (18.0-39.1); MEAN CORPUSCULAR HEMOGLOBIN 29.1 pg (28-32); MEAN CORPUSCULAR HGB CONC 31.3 g/dL (31-35); MEAN CORPUSCULAR VOLUME 92.9 fL (81-99); MONOCYTES # (AUTO) 0.6 (0.2-0.8); MONOCYTES % 4.8 % (4.4-11.3); NEUTROPHILS # (AUTO) 9.3 (2.1-6.9); NEUTROPHILS % 75.9 % (38.7-80.0); PLATELET COUNT 247 x10e3/uL (140-360); RED BLOOD COUNT 3.68 x10e6/uL (3.6-5.1); RED CELL DISTRIBUTION WIDTH 21.2 % (11.7-14.4); WHITE BLOOD COUNT 12.19 x10e3/uL (4.8-10.8)
[2024-06-05 06:10] LABS: ANION GAP 18.2 mmol/L (8-16); CREATININE, SERUM 1.18 mg/dL (0.57-1.11); MAGNESIUM 2.2 MG/DL (1.3-2.1); POTASSIUM 4.2 mmol/L (3.5-5.1)
[2024-06-05 07:55] LABS: ABG HCO3 27 mmol/L (22-26); ABG PCO2 37 mmHg (35-45); ABG PH 7.47 (7.35-7.45); ABG PO2 115 mmHg (80-105); ABG TCO2 28
[2024-06-05] MEDS ORDERED: FOLIC ACID 1 MG TAB PO SCH (09:00)
[2024-06-05] MEDS: FOLIC ACID/CYANOCOB/PYRIDOXINE TAB PO SCH (09:04)
[2024-06-05] MEDS: IRON SUCROSE 100 MG in SODIUM CHLORIDE 0.9% 100 ML IV SCH (09:06)
[2024-06-05] MEDS: ACETAMINOPHEN/CODEINE 300MG - 30MG TAB PO PRN (17:57)
[2024-06-05] MEDS: MELATONIN 3 MG TAB PO PRN (21:09)
[2024-06-06] VITALS (7 sets, daily range): BP systolic 110–135; BP diastolic 79–93; PULSE 62–114; RESP 17–22; TEMP 97.5–98.1; O2SAT 99–100
[2024-06-06] MEDS ORDERED: GUAIFENESIN/DEXTROMETHORPHAN LIQD 5 ML UDC NG PRN (15:00)
[2024-06-06] MEDS ORDERED: BENZONATATE100 MG PO (15:15)
[2024-06-06] MEDS ORDERED: K DUR10 MEQ PO (15:15)
[2024-06-06] MEDS ORDERED: ALBUTEROL2.5 MG/3 M NEB (15:15)
[2024-06-06] MEDS ORDERED: IPRATROPIU0.2 MG/1 M NEB (15:15)
[2024-06-06] MEDS ORDERED: DOXYCYCLINE HY100 MG PO (15:15)
[2024-06-11 07:50] LABS: ABG HCO3 27 mmol/L (22-26); ABG PCO2 37 mmHg (35-45); ABG PH 7.47 (7.35-7.45); ABG PO2 115 mmHg (80-105); ABG TCO2 28
== END 2024-06-06 18:25 | disposition hospice, inpatient (51) | DRG 871 ==
LOC: ER 16:03 → ERHOLD 19:12 → MED/SURG2 23:55
PROVIDERS: ADMIT Internal Medicine; ATTEND Internal Medicine
PROC: 3E0333Z Introduction of Anti-inflammatory into Peripheral Vein, Percutaneous Approach (ICD-10-PCS; 2024-05-31)
PROC: 0W993ZZ Drainage of Right Pleural Cavity, Percutaneous Approach (ICD-10-PCS; principal; 2024-06-01)
PROC: 4A133R1 Monitoring of Arterial Saturation, Peripheral, Percutaneous Approach (ICD-10-PCS; 2024-06-05)
PROC: 0T9B70Z Drainage of Bladder with Drainage Device, Via Natural or Artificial Opening (ICD-10-PCS; 2024-06-06)
DX: A41.9 Sepsis, unspecified organism (principal); G93.41 Metabolic encephalopathy; N17.0 Acute kidney failure with tubular necrosis; J96.21 Acute and chronic respiratory failure with hypoxia; I11.0 Hypertensive heart disease with heart failure; I50.33 Acute on chronic diastolic (congestive) heart failure; J90 Pleural effusion, not elsewhere classified; E44.0 Moderate protein-calorie malnutrition; F03.B18 Unspecified dementia, moderate, with other behavioral disturbance; J18.9 Pneumonia, unspecified organism; B37.49 Other urogenital candidiasis; R44.3 Hallucinations, unspecified; I27.20 Pulmonary hypertension, unspecified; Z66 Do not resuscitate; Z51.5 Encounter for palliative care; Z11.52 Encounter for screening for COVID-19; D63.8 Anemia in other chronic diseases classified elsewhere; E88.09 Other disorders of plasma-protein metabolism, not elsewhere classified; Z99.81 Dependence on supplemental oxygen; I48.0 Paroxysmal atrial fibrillation; I25.10 Atherosclerotic heart disease of native coronary artery without angina pectoris; K21.9 Gastro-esophageal reflux disease without esophagitis; F41.9 Anxiety disorder, unspecified; Y95 Nosocomial condition; T41.3X5A Adverse effect of local anesthetics, initial encounter; Z68.27 Body mass index [BMI] 27.0-27.9, adult; Z79.01 Long term (current) use of anticoagulants; Z79.82 Long term (current) use of aspirin; Z95.1 Presence of aortocoronary bypass graft; Z85.3 Personal history of malignant neoplasm of breast; Z92.21 Personal history of antineoplastic chemotherapy; Z90.10 Acquired absence of unspecified breast and nipple; Z90.49 Acquired absence of other specified parts of digestive tract; Z90.710 Acquired absence of both cervix and uterus; Z88.2 Allergy status to sulfonamides
CPT/HCPCS: 32555; 36415; 36600; 71045; 71260; 80048; 80053; 82040; 82140; 82550; 82607; 82746; 82805; 82945; 82948; 83540; 83605; 83615; 83735; 83880; 84100; 84132; 84157; 84443; 84466; 84484; 85025; 85045; 85610; 87070; 87205; 88112; 88305; 89051; 93005; 94640; 94799; 99285; C1729; J0692; J1756; J1940; J2405; J2470; J2765; J3475; J7050; J7512; Q9967